=== PATIENT | female | born 1995 | race Caucasian/White ===

== ENCOUNTER 2016-11-28 20:20 | Emergency (ER) | payer MEDICAID ==
[2015-03-29 05:16] VITALS: BMI 35.5
[~2016-11-28 20:20] MED LIST: ACETAMINOPHEN325 MG PO; ACETAMINOPHEN500 M1 PO; IBUPROFEN600 MG PO; PERCOCET 5-3251 TAB PO; PRENATAL COMPLE1 TAB PO; PROZAC20 MG PO
[2016-11-28 21:50] LABS: APPEARANCE HAZY (CLEAR); COLOR DK YELLOW (YELLOW); LEUKOCYTE ESTERASE 2+ (NEGATIVE); NITRITE NEGATIVE (NEGATIVE); PROTEIN 1+ mg/dL (NEGATIVE); SPECIFIC GRAVITY 1.015 (1.005-1.020)
[2016-11-28 21:51] LABS: BILIRUBIN NEGATIVE (NEGATIVE); GLUCOSE NEGATIVE (NEGATIVE); KETONE MODERATE mg/dL (NEGATIVE); UROBILINOGEN NORMAL (NORMAL); WHITE CELLS - URINE >50 /hpf (0-5)
[2016-11-28 22:03] LABS: BACTERIA MANY /hpf (NONE SEEN); EPITHELIAL CELLS 0-5 /hpf (0-5)
== END 2016-11-28 23:28 | disposition home or self-care (01) ==
LOC: D.ER 20:20
PROVIDERS: Emergency Medicine
DX: N39.0 Urinary tract infection, site not specified (principal); R11.10 Vomiting, unspecified; F32.9 Major depressive disorder, single episode, unspecified; F17.200 Nicotine dependence, unspecified, uncomplicated

== ENCOUNTER 2017-01-11 18:03 | Emergency (ER) | payer SELFPAY ==
[2015-03-29 05:16] VITALS: BMI 35.5
== END 2017-01-11 22:40 | disposition home or self-care (01) ==
LOC: D.ER 18:03
DX: F32.9 Major depressive disorder, single episode, unspecified (principal); F41.9 Anxiety disorder, unspecified; F17.200 Nicotine dependence, unspecified, uncomplicated; F12.10 Cannabis abuse, uncomplicated

== ENCOUNTER 2017-01-19 10:07 | Emergency (ER) | payer SELFPAY ==
[2015-03-29 05:16] VITALS: BMI 35.5
== END 2017-01-19 11:25 | disposition home or self-care (01) ==
LOC: D.ER 10:07
DX: F41.9 Anxiety disorder, unspecified (principal); F41.0 Panic disorder [episodic paroxysmal anxiety]; F17.200 Nicotine dependence, unspecified, uncomplicated; F32.9 Major depressive disorder, single episode, unspecified

== ENCOUNTER 2017-04-26 15:21 | Emergency (ER) | payer SELFPAY ==
[2015-03-29 05:16] VITALS: BMI 35.5
== END 2017-04-26 16:07 | disposition home or self-care (01) ==
LOC: D.ER 15:21
DX: Z76.0 Encounter for issue of repeat prescription (principal); F17.200 Nicotine dependence, unspecified, uncomplicated; F32.9 Major depressive disorder, single episode, unspecified

== ENCOUNTER 2017-05-06 10:13 | Emergency (ER) | payer SELFPAY ==
[2015-03-29 05:16] VITALS: BMI 35.5
== END 2017-05-06 12:20 | disposition home or self-care (01) ==
LOC: D.ER 10:13
DX: Z03.89 Encounter for observation for other suspected diseases and conditions ruled out (principal); F32.9 Major depressive disorder, single episode, unspecified; F41.0 Panic disorder [episodic paroxysmal anxiety]; R51 Headache; M79.605 Pain in left leg; M79.604 Pain in right leg; R10.30 Lower abdominal pain, unspecified; R53.83 Other fatigue; M54.5 Low back pain; F17.200 Nicotine dependence, unspecified, uncomplicated

== ENCOUNTER 2017-09-28 19:37 | Emergency (ER) | payer MEDICAID ==
[2015-03-29 05:16] VITALS: BMI 35.5
== END 2017-09-28 21:12 | disposition home or self-care (01) ==
LOC: D.ER 19:37
DX: S93.402A Sprain of unspecified ligament of left ankle, initial encounter (principal); W19.XXXA Unspecified fall, initial encounter; Y93.89 Activity, other specified; Y92.019 Unspecified place in single-family (private) house as the place of occurrence of the external cause; F17.200 Nicotine dependence, unspecified, uncomplicated

== ENCOUNTER 2018-12-14 10:40 | Emergency (ER) | payer MEDICAID ==
[~2018-12-14] VITALS: Ht 157.5 cm; Wt 62.4 kg
[2018-12-14 10:45] VITALS: Ht 157.5 cm; Wt 62.4 kg
[2018-12-14 11:10] LABS: BASOPHILS 0.1 % (0-2); EOSINOPHILS 0.4 % (0-7); HEMATOCRIT 31.6 % (36.0-48.0); HEMOGLOBIN 10.9 g/dL (12-16); IMMATURE GRANULOCYTES 0.7 % (0-5); LYMPHOCYTES 20.6 % (15-50); MCH 31.5 pg (26.0-34.0); MCHC 34.5 g/dL (31.0-37.0); MCV 91.3 fL (80.0-100.0); MEAN PLATELET VOLUME 10.4 fL (7.4-10.4); MONOCYTES 7.4 % (2-11); NEUTROPHILS 70.8 % (40-80); RBC 3.46 10x6/uL (4.00-5.40); RDW 13.1 % (11.5-14.5); WBC 9.5 10x3/uL (4.8-10.8)
[2018-12-14 11:15] LABS: PLATELET COUNT 221 10x3/uL (130-400)
[2018-12-14 12:02] LABS: ALBUMIN 2.8 g/dL (3.4-5.0); ALKALINE PHOSPHATASE 60 U/L (46-116); ALT (SGPT) 14 U/L (10-68); BILIRUBIN - TOTAL 0.31 mg/dL (0.2-1.3); CALC OSMOLALITY 272 mosm/kg (275-300); CALCIUM 7.9 mg/dL (8.5-10.1); CARBON DIOXIDE 22.8 mmol/L (21.0-32.0); CHLORIDE - SERUM 105 mmol/L (98-107); CREATININE - SERUM 0.5 mg/dL (0.6-1.3); GLUCOSE 87 mg/dL (74-106); POTASSIUM - SERUM 3.5 mmol/L (3.5-5.1); SODIUM 138 mmol/L (136-145); UREA NITROGEN 7 mg/dL (7-18); eGFR NON AFRICAN AMERICAN > 90 mL/min (90-120)
[2018-12-14 12:57] LABS: HCG URINE POSITIVE (NEGATIVE)
[2018-12-14 13:07] LABS: APPEARANCE CLEAR (CLEAR); BILIRUBIN NEGATIVE (NEGATIVE); COLOR STRAW (YELLOW); GLUCOSE NEGATIVE (NEGATIVE); KETONE NEGATIVE (NEGATIVE); NITRITE NEGATIVE (NEGATIVE); PROTEIN NEGATIVE (NEGATIVE); SPECIFIC GRAVITY 1.005 (1.005-1.020); UROBILINOGEN NORMAL (NORMAL)
[2018-12-14 13:08] LABS: WHITE CELLS - URINE 0-5 /hpf (0-5)
[2018-12-14 13:09] LABS: BACTERIA FEW /hpf (NONE SEEN); EPITHELIAL CELLS 0-5 /hpf (0-5); RED CELLS - URINE 0-5 /hpf (0-5)
[2018-12-14] MEDS ORDERED: ZOFRAN4 MG PO (13:20)
[2018-12-14 13:45] VITALS: BP 112/60
== END 2018-12-14 13:45 | disposition home or self-care (01) ==
LOC: D.ER 10:40
PROVIDERS: Family Medicine
DX: R11.2 Nausea with vomiting, unspecified (principal); R19.7 Diarrhea, unspecified; Z32.01 Encounter for pregnancy test, result positive

== ENCOUNTER 2019-01-18 08:59 | Emergency (ER) | payer MEDICAID ==
[~2019-01-18] VITALS: Ht 157.5 cm; Wt 65.7 kg
[~2019-01-18 08:59] MED LIST changes: +ZOFRAN4 MG PO
[2019-01-18 09:00] VITALS: Ht 157.5 cm; Wt 65.7 kg
[2019-01-18 09:24] LABS: APPEARANCE CLEAR (CLEAR); COLOR YELLOW (YELLOW); SPECIFIC GRAVITY 1.005 (1.005-1.020)
[2019-01-18 09:25] LABS: BILIRUBIN NEGATIVE (NEGATIVE); GLUCOSE NEGATIVE (NEGATIVE); KETONE NEGATIVE (NEGATIVE); NITRITE NEGATIVE (NEGATIVE); PROTEIN NEGATIVE (NEGATIVE)
[2019-01-18 09:31] LABS: BASOPHILS 0.2 % (0-2); EOSINOPHILS 0.7 % (0-7); HEMATOCRIT 29.7 % (36.0-48.0); IMMATURE GRANULOCYTES 0.5 % (0-5); LYMPHOCYTES 20.3 % (15-50); MCH 30.5 pg (26.0-34.0); MCHC 33.7 g/dL (31.0-37.0); MCV 90.5 fL (80.0-100.0); MEAN PLATELET VOLUME 10.2 fL (7.4-10.4); MONOCYTES 6.4 % (2-11); NEUTROPHILS 71.9 % (40-80); PLATELET COUNT 217 10x3/uL (130-400); RBC 3.28 10x6/uL (4.00-5.40); WBC 10.2 10x3/uL (4.8-10.8)
[2019-01-18 13:16] VITALS: BP 116/77
== END 2019-01-18 13:17 | disposition home or self-care (01) ==
LOC: D.ER 08:59
PROVIDERS: Emergency Medicine
DX: O26.852 Spotting complicating pregnancy, second trimester (principal); Z3A.23 23 weeks gestation of pregnancy

== ENCOUNTER → 2019-03-24 09:01 | Outpatient (CLI) | payer SELFPAY ==
[2019-01-18 09:00] VITALS: BMI 26.5
== END | disposition home or self-care (01) ==
LOC: D.US 09:00
PROVIDERS: ATTEND Obstetrics & Gynecology
DX: M79.662 Pain in left lower leg (principal)

== ENCOUNTER → 2019-04-25 08:41 | Outpatient (CLI) | payer SELFPAY ==
[2019-01-18 09:00] VITALS: BMI 26.5
[~2019-04-25 08:41] MED LIST changes: +BUSPAR10 MG PO; +FERROUS SULFAT325 MG PO
--- NOTE | 2019-04-25 10:24 | NUR ---
According to the Suicide Assessment the patient rates low on the suicide screen she denies thoughts of SI, but does say she is tired and stressed.
== END | disposition home or self-care (01) ==
LOC: D.LDO 08:41
PROVIDERS: ATTEND Obstetrics & Gynecology
DX: O36.5990 Maternal care for other known or suspected poor fetal growth, unspecified trimester, not applicable or unspecified (principal); Z3A.00 Weeks of gestation of pregnancy not specified

== ENCOUNTER 2019-04-26 13:52 | Outpatient (CLI) | payer SELFPAY ==
[2019-01-18 09:00] VITALS: BMI 26.5
[~2019-04-26 13:52] MED LIST changes: -BUSPAR10 MG PO; -FERROUS SULFAT325 MG PO
--- NOTE | 2019-04-26 14:11 | NUR ---
DR. PUGA NOTIFIED AND REVIEWED PTS BEHAVIOR AND ASSESSMENT RESULTS. PT IS A LOW RISK PER DR. PUGA. DR. PUGA STATED TO GIVE RESOURCES TO PT AT TIME OF DISCHARGE. NO FURTHER ORDERS AT THIS TIME. RESOURCES REVIEWED WITH PT AND SHE VERBALIZED UNDERSTANDING.
[2019-04-26 15:05] LABS: HEMATOCRIT 24.1 % (36.0-48.0); MCH 27.1 pg (26.0-34.0); MCHC 33.2 g/dL (31.0-37.0); MCV 81.7 fL (80.0-100.0); MEAN PLATELET VOLUME 10.5 fL (7.4-10.4); RBC 2.95 10x6/uL (4.00-5.40); RDW 13.9 % (11.5-14.5); WBC 10.7 10x3/uL (4.8-10.8)
[2019-04-26] MEDS ORDERED: FERROUS SULFAT325 MG PO (15:30)
[2019-04-26] MEDS ORDERED: BUSPAR10 MG PO (15:32)
[2019-04-27 00:01] LABS: HEMATOCRIT 28.4 % (36.0-48.0); HEMOGLOBIN 9.5 g/dL (12-16); MCH 28.1 pg (26.0-34.0); MCHC 33.5 g/dL (31.0-37.0); MEAN PLATELET VOLUME 9.5 fL (7.4-10.4); NEUTROPHILS 80.7 % (40-80); PLATELET COUNT 202 10x3/uL (130-400); RBC 3.38 10x6/uL (4.00-5.40); RDW 13.7 % (11.5-14.5); WBC 11.6 10x3/uL (4.8-10.8)
== END 2019-04-27 00:09 | disposition home or self-care (01) ==
LOC: D.LDO 13:52 → D.LD 23:03 → D.LDO 04-27 00:09
PROVIDERS: ATTEND Obstetrics & Gynecology
DX: O26.893 Other specified pregnancy related conditions, third trimester (principal); Z3A.37 37 weeks gestation of pregnancy

== ENCOUNTER 2019-04-27 19:57 | Inpatient (IN) | payer MEDICAID ==
[~2019-04-27] VITALS: Ht 157.5 cm; Wt 73.5 kg
[~2019-04-27 19:57] MED LIST changes: +BUSPAR10 MG PO; +FERROUS SULFAT325 MG PO
[2019-04-27 21:00] LABS: BASOPHILS 0.1 % (0-2); EOSINOPHILS 0.1 % (0-7); HEMATOCRIT 25.9 % (36.0-48.0); HEMOGLOBIN 8.7 g/dL (12-16); IMMATURE GRANULOCYTES 0.8 % (0-5); LYMPHOCYTES 6.6 % (15-50); MCH 27.6 pg (26.0-34.0); MCHC 33.6 g/dL (31.0-37.0); MCV 82.2 fL (80.0-100.0); MEAN PLATELET VOLUME 10.3 fL (7.4-10.4); MONOCYTES 5.4 % (2-11); PLATELET COUNT 216 10x3/uL (130-400); RBC 3.15 10x6/uL (4.00-5.40); RDW 14.4 % (11.5-14.5); WBC 14.8 10x3/uL (4.8-10.8)
[2019-04-27 21:10] LABS: ALBUMIN 2.3 g/dL (3.4-5.0); ALKALINE PHOSPHATASE 178 U/L (46-116); ALT (SGPT) 26 U/L (10-68); BILIRUBIN - TOTAL 0.62 mg/dL (0.2-1.3); CALC OSMOLALITY 267 mosm/kg (275-300); CALCIUM 7.8 mg/dL (8.5-10.1); CARBON DIOXIDE 21.7 mmol/L (21.0-32.0); CHLORIDE - SERUM 102 mmol/L (98-107); CREATININE - SERUM 0.7 mg/dL (0.6-1.3); GLUCOSE 106 mg/dL (74-106); PROTEIN - SERUM 6.4 g/dL (6.4-8.2); SODIUM 135 mmol/L (136-145); UREA NITROGEN 7 mg/dL (7-18); eGFR NON AFRICAN AMERICAN > 90 mL/min (90-120)
[2019-04-27 21:11] LABS: POTASSIUM - SERUM 2.8 mmol/L (3.5-5.1)
[2019-04-27 21:15] LABS: COLOR DK YELLOW (YELLOW)
[2019-04-27 21:16] LABS: AMORPHOUS SEDIMENT <1+ /lpf (NONE SEEN); APPEARANCE HAZY (CLEAR); BACTERIA FEW /hpf (NONE SEEN); BILIRUBIN NEGATIVE (NEGATIVE); EPITHELIAL CELLS 0-5 /hpf (0-5); GLUCOSE NEGATIVE (NEGATIVE); KETONE LARGE mg/dL (NEGATIVE); NITRITE NEGATIVE (NEGATIVE); PROTEIN TRACE mg/dL (NEGATIVE); RED CELLS - URINE 0-5 /hpf (0-5); SPECIFIC GRAVITY 1.015 (1.005-1.020); UROBILINOGEN NORMAL (NORMAL); WHITE CELLS - URINE 0-5 /hpf (0-5)
[2019-04-27 21:17] LABS: UDS - AMPHET NEGATIVE QUAL (NEGATIVE); UDS - BARB NEGATIVE QUAL (NEGATIVE); UDS - BENZO NEGATIVE QUAL (NEGATIVE); UDS - COCAINE NEGATIVE QUAL (NEGATIVE); UDS - OPIATE NEGATIVE QUAL (NEGATIVE); UDS - PCP NEGATIVE QUAL (NEGATIVE); UDS - THC NEGATIVE QUAL (NEGATIVE)
[2019-04-27 21:55] LABS: LYMPHOCYTES 2 % (15-50); MONOCYTES 2 % (2-11); NEUTROPHILS 91 % (40-80); ROULEAUX 4+
[2019-04-27 21:56] LABS: HYPOCHROMASIA 1+; PLATELET ESTIMATE NORMAL
[2019-04-27 23:35] LABS: APTT 36.9 SECONDS (22.8-39.4); INR 1.17 (0.85-1.17); PROTIME 14.3 SECONDS (11.6-15.0)
[2019-04-27 23:37] LABS: D-DIMER-QUANTITATIVE 2.34 ug/mLFEU (0.20-0.54)
[2019-04-27 23:48] LABS: CKMB 1.5 U/L (0.0-3.6); CREATINE KINASE 38 UL (21-215)
[2019-04-27 23:50] LABS: TROPONIN-I < 0.017 ng/mL (0.000-0.060)
[2019-04-28 07:22] VITALS: BP 124/60; Ht 157.5 cm; Wt 73.5 kg
[2019-04-28 07:23] LABS: BASOPHILS 0.1 % (0-2); EOSINOPHILS 0 % (0-7); HEMATOCRIT 28.3 % (36.0-48.0); HEMOGLOBIN 9.4 g/dL (12-16); IMMATURE GRANULOCYTES 0.8 % (0-5); LYMPHOCYTES 6.6 % (15-50); MCH 27.3 pg (26.0-34.0); MCHC 33.2 g/dL (31.0-37.0); MCV 82.3 fL (80.0-100.0); MEAN PLATELET VOLUME 10.7 fL (7.4-10.4); MONOCYTES 5.6 % (2-11); NEUTROPHILS 86.9 % (40-80); PLATELET COUNT 179 10x3/uL (130-400); RBC 3.44 10x6/uL (4.00-5.40); RDW 14.6 % (11.5-14.5); WBC 14.4 10x3/uL (4.8-10.8)
[2019-04-28 07:36] LABS: ALBUMIN 2.3 g/dL (3.4-5.0); ALKALINE PHOSPHATASE 179 U/L (46-116); ALT (SGPT) 32 U/L (10-68); BILIRUBIN - TOTAL 0.73 mg/dL (0.2-1.3); CALCIUM 7.6 mg/dL (8.5-10.1); CARBON DIOXIDE 17.3 mmol/L (21.0-32.0); CHLORIDE - SERUM 103 mmol/L (98-107); CREATININE - SERUM 0.6 mg/dL (0.6-1.3); GLUCOSE 78 mg/dL (74-106); PROTEIN - SERUM 6.3 g/dL (6.4-8.2); SODIUM 133 mmol/L (136-145); eGFR NON AFRICAN AMERICAN > 90 mL/min (90-120)
[2019-04-28 07:37] LABS: CALC OSMOLALITY 261 mosm/kg (275-300); POTASSIUM - SERUM 3.4 mmol/L (3.5-5.1); UREA NITROGEN 4 mg/dL (7-18)
--- NOTE | 2019-04-28 17:15 | NUR ---
PT RINGS CALL LIGHT. THIS RN TO BEDSIDE. PT REQUESTING ADDITIONAL BLANKETS. TEMP TAKEN 102.3 NOTED. PT EDUCATION GIVEN AND NO ADDITIONAL BLANKETS PROVIDED. WHILE AT BEDSIDE, PT ASSISTED W/GETTING OUT OF BED, UP TO BR. VOIDS 150ML URINE. RETURNS TO BED. RECONNECTED TO MONITORS. PULSE OX OBTAINED, PT'S PULSE OX WHEN OFF O2 IS 97%. NC O2 OFF AT THIS TIME. PT MEDICATED W/500MG TYLENOL PO. DENIES FURTHER NEEDS AT THIS TIME.
[2019-04-28 19:30] VITALS: BP 100/56
--- NOTE | 2019-04-28 19:30 | NUR ---
ASSESSMENT PER FLOW, PT REPORTS JUST GETTING OUT OF SHOWER, SALINE LOCK CONVERTED TO IV, NS RESTARTED PER MD ORDERS, SEE EMAR, PT REPORTS FLATUS, BM TODAY AND VOIDING WITH NO DIFFICULTY, PT REPORTS BACK PAIN /10, SCD'S REAPPLIED AND WORKING PROPERLY, DENIES NEEDS, BED IN LOW POSITION, SIDE RAILS X 2, CALL LIGHT IN REACH
--- NOTE | 2019-04-28 19:50 | NUR ---
[id number] - 1 MILD CTX NOTED, FHR 175 WITH ACCELS, 1 VARIABLE NOTED
--- NOTE | 2019-04-28 21:00 | NUR ---
PT ON MONITORS AT THIS TIME, 3 MILD CTX NOTED, FHR 170'2 WITH ACCELS
--- NOTE | 2019-04-28 21:20 | NUR ---
PT OFF MONITORS, TO BR
--- NOTE | 2019-04-28 21:25 | NUR ---
PT BACK TO BED, MONITORS RECONNECTED, PT DENIES FURTHER NEEDS, FOB AT BEDSIDE
--- NOTE | 2019-04-28 21:38 | NUR ---
RECEIVED REPORT FROM KHLOE CRUZ RN THAT INTERMITTENT MONITORING WITH FEVER
--- NOTE | 2019-04-28 22:21 | NUR ---
PT RESTING, FOB AT BEDSIDE, DENIES NEEDS AT THIS TIME
--- NOTE | 2019-04-28 22:45 | NUR ---
FEVER 102.8 TYLENOL GIVEN PER MAR
--- NOTE | 2019-04-28 22:48 | NUR ---
REQUESTED ORANGE JUICE. ORANGE JUICE AND CUP GIVEN. GETTING UP TO THE BATHROOM WILL PUT BACK ON MONITORS PER ORDER WHEN FINISHED.
[2019-04-28 23:00] VITALS: BP 132/65
--- NOTE | 2019-04-28 23:00 | NUR ---
PT PLACED BACK ON MONITORS AT THIS TIME
--- NOTE | 2019-04-28 23:00 | NUR ---
[id number] - 1 MILD CTX NOTED, FHR 175
--- NOTE | 2019-04-28 23:18 | NUR ---
NEW BAG OF LR HUNG PER MD ORDERS, SEE EMAR
--- NOTE | 2019-04-29 00:15 | NUR ---
KHLOE CRUZ, RN REPORTS THAT PT'S TEMP IS 102.8, RESP 24-26, O2 SAT 94%, PT PLACED ON 2L OF O2 VIA NC, LUNGS CLEAR WITH RIGHT LOWER DIMINISHED, WILL NOTIFY DR WALTON
--- NOTE | 2019-04-29 00:16 | NUR ---
EFM/TOCO PLACED
--- NOTE | 2019-04-29 00:27 | NUR ---
DR WALTON NOTIFIED, REPORT OF LUNG SOUNDS, TEMP, RESP, O2 SAT AND PLACED ON 2L O2 VIA NC, ORDERS TO DRAW BLOOD CULTURES, PLACED COLD PACKS, ADM TYLENOL 500 MG PO NOW, DC TYLENOL 500 MG Q6HPRN, AND CHANGE TO TYLENOL 1000MG PO Q6HPRN FOR FEVER
--- NOTE | 2019-04-29 00:30 | NUR ---
2 MILD CTX NOTED, FHR 165 WITH ACCELS
--- NOTE | 2019-04-29 00:32 | NUR ---
LAB TO ROOM FOR BLOOD DRAW
--- NOTE | 2019-04-29 00:39 | NUR ---
ADM TYLENOL 500 MG PER MD ORDERS, COLD PACKS PLACED, SCD'S CONTINUE ON AND WORKING PROPERLY, FOB AT BEDSIDE
--- NOTE | 2019-04-29 01:30 | NUR ---
PT PLAN MANAGER LIGHT, PT UP TO BR, GAIT STEADY, EMPTIED 500 MLS OF LIGHT YELLOW URINE, PT REPORTS VOIDING EARLIER, PT VOIDED 500 MLS OF LIGHT YELLOW URINE BY SELF WITH NO DIFFICULTY, PT BACK TO BED, SCD'S RECONNECTED AND WORKING PROPERLY, EFM/TOCO RECONNECTED, PT DENIES FURTHER NEEDS
--- NOTE | 2019-04-29 02:00 | NUR ---
PT MACHINE INKER LIGHT, PT UP TO BR, GAIT STEADY, VOIDED 200 MLS LIGHT YELLOW URINE, REPORTS HAVING TO "PEE" MORE FROM DRINKING WATER, PT BACK TO BED, TEMP OBTAINED, 98.8 AT THIS TIME, PT DISCONNECTED FROM EFM/TOCO, PT REQUESTED AND SERVED SANDWICH TRAY, SCD'S RECONNECTED AND WORKING PROPERLY, DENIES FURTHER NEEDS, FOB ASLEEP ON COUCH
--- NOTE | 2019-04-29 02:00 | NUR ---
PT REMOVED FROM MONITORS AT THIS TIME
--- NOTE | 2019-04-29 02:51 | NUR ---
AZ ANDRADE IVPB PER MD ORDERS, SEE EMAR
[2019-04-29 03:38] VITALS: BP 118/68
--- NOTE | 2019-04-29 03:38 | NUR ---
PT DIE WELDER LIGHT, PT UP TO BR WITH ASSISTANCE, GAIT STEADY, VOIDED 500 MLS OF YELLOW URINE BY SELF WITH NO DIFFICULTY, PT BACK TO BED, VS OBTAINED, EFM/TOCO APPLIED, SCD'S RECONNECTED, PT POSITIONED TO LEFT SIDE WITH PILLOWS BEHIND AROUND HER FOR COMFORT AND SUPPORT, PT DENIES FURTHER NEEDS
--- NOTE | 2019-04-29 04:53 | NUR ---
PT CONFIGURATOR LIGHT, PT STATES "Y'ALL SAID THESE COULD COME OFF IN 20 MINUTES", EFM/TOCO REMOVED, PT UP TO BR WITH ASSISTANCE, VOIDED 200 MLS OF LIGHT YELLOW URINE BY SELF WITH NO DIFFICULTY, PT BACK TO BED, SCD'S RECONNECTED AND WORKING PROPERLY, FROM 429 TO 452 - 3 MILD CTX, FHR 135 WITH ACCELS NOTED, PT DENIES FURTHER NEEDS, BED IN LOW POSITION, SIDE RAILS X 2, CALL LIGHT IN REACH, FOB ASLEEP ON COUCH
--- NOTE | 2019-04-29 06:02 | NUR ---
PT MARINE PHOTOGRAPHER LIGHT, PT UP TO BR WITH ASSISTANCE, VOIDED 250 MLS OF LIGHT YELLOW URINE BY SELF WITH NO DIFFICULTY, PT BACK TO BED, PT REPORTS "FEELING COLD", OBTAINED TEMP, TEMP 99.5, INFORMED PT THAT I WAS GOING TO PUT THE EFM/TOCO ON HER AND PT REFUSED IT AT THIS TIME, STATES "THE DOCTOR TOLD ME ANYTHING UNDER 100 IS NOT A TEMP", TRIED TO EXPLAIN TO PT, BUT PT STILL REFUSES AT THIS TIME, DENIES FURTHER NEEDS, SCD'S RECONNECTED AND WORKING PROPERLY, BED IN LOW POSITION, SIDE RAILS X 2, CALL LIGHT IN REACH, FOB ASLEEP ON COUCH
[2019-04-29 07:42] VITALS: BP 122/70
[2019-04-29 09:01] LABS: ALBUMIN 2.1 g/dL (3.4-5.0); ALKALINE PHOSPHATASE 177 U/L (46-116); ALT (SGPT) 28 U/L (10-68); BILIRUBIN - TOTAL 0.64 mg/dL (0.2-1.3); CALC OSMOLALITY 266 mosm/kg (275-300); CALCIUM 7.8 mg/dL (8.5-10.1); CARBON DIOXIDE 20.3 mmol/L (21.0-32.0); CHLORIDE - SERUM 103 mmol/L (98-107); CREATININE - SERUM 0.6 mg/dL (0.6-1.3); GLUCOSE 95 mg/dL (74-106); POTASSIUM - SERUM 3.5 mmol/L (3.5-5.1); PROTEIN - SERUM 6.2 g/dL (6.4-8.2); SODIUM 135 mmol/L (136-145); UREA NITROGEN 3 mg/dL (7-18); eGFR NON AFRICAN AMERICAN > 90 mL/min (90-120)
[2019-04-29 09:11] LABS: BASOPHILS 0.2 % (0-2); EOSINOPHILS 0 % (0-7); HEMOGLOBIN 9.1 g/dL (12-16); IMMATURE GRANULOCYTES 1.3 % (0-5); LYMPHOCYTES 7.7 % (15-50); MCH 27.8 pg (26.0-34.0); MCHC 33.7 g/dL (31.0-37.0); MCV 82.6 fL (80.0-100.0); MEAN PLATELET VOLUME 10.1 fL (7.4-10.4); MONOCYTES 3.9 % (2-11); NEUTROPHILS 86.9 % (40-80); PLATELET COUNT 171 10x3/uL (130-400); RBC 3.27 10x6/uL (4.00-5.40); RDW 14.7 % (11.5-14.5); WBC 11.5 10x3/uL (4.8-10.8)
[2019-04-29 11:17] VITALS: BP 116/68
[2019-04-29 15:35] VITALS: BP 119/62
[2019-04-29 19:13] VITALS: BP 118/91
[2019-04-29 23:25] VITALS: BP 101/55
[2019-04-30 06:50] LABS: BASOPHILS 0.1 % (0-2); EOSINOPHILS 0.2 % (0-7); HEMATOCRIT 25.2 % (36.0-48.0); HEMOGLOBIN 8.3 g/dL (12-16); IMMATURE GRANULOCYTES 2.3 % (0-5); LYMPHOCYTES 10.7 % (15-50); MCH 27.2 pg (26.0-34.0); MCHC 32.9 g/dL (31.0-37.0); MCV 82.6 fL (80.0-100.0); MEAN PLATELET VOLUME 9.9 fL (7.4-10.4); MONOCYTES 4.8 % (2-11); NEUTROPHILS 81.9 % (40-80); PLATELET COUNT 165 10x3/uL (130-400); RBC 3.05 10x6/uL (4.00-5.40); RDW 14.7 % (11.5-14.5); WBC 9.1 10x3/uL (4.8-10.8)
[2019-04-30 06:59] LABS: CALC OSMOLALITY 269 mosm/kg (275-300); CALCIUM 7.5 mg/dL (8.5-10.1); CARBON DIOXIDE 20.2 mmol/L (21.0-32.0); CHLORIDE - SERUM 105 mmol/L (98-107); CREATININE - SERUM 0.5 mg/dL (0.6-1.3); GLUCOSE 85 mg/dL (74-106); MAGNESIUM - SERUM 1.6 mg/dL (1.8-2.4); PHOSPHOROUS 2.9 mg/dL (2.5-4.9); SODIUM 137 mmol/L (136-145); UREA NITROGEN 4 mg/dL (7-18); eGFR NON AFRICAN AMERICAN > 90 mL/min (90-120)
--- NOTE | 2019-04-30 10:41 | NUR ---
up to bathroom.
[2019-04-30 19:40] VITALS: BP 124/82
--- NOTE | 2019-04-30 19:40 | NUR ---
REC'D PT AA&O X 4. PAIN ASSESSED. PT REPORTS CONSTANT BACK PAIN. RATES PAIN 3/10. NO REQUEST FOR PAIN INTERVENTIONS AT THIS TIME. SEE FLOWSHEET FOR SHIFT ASSESSMENT. BREATH SOUNDS CLEAR W/DIMINISHED BREATH SOUNDS NOTED TO LOWER RT LOBE. BOWEL SOUNDS PRESENT. NO EDEMA NOTED. SCD WRAPS IN PLACE BILATERALLY. CONNECTED TO PUMP AND PUMP IS ON AND FUNCTIONING. IV SITE TO LEFT WRIST. WNL. PATENT W/NS INFUSING AT 50ML/HR. PM SHIFT POC DISCUSSED. PT VEBALZIES UNDERSTANDING AND AGREEABLE. LOVENOX TEACHING PROVIDED AND QUESTIONS ANSWERED.ADDITIONAL COMMENTS IN CENTRICITY. BED LOW, SIDE RAILS UPX 2. CALL LIGHT AND PHONE AT PT'S SIDE.
--- NOTE | 2019-04-30 20:00 | NUR ---
RT TO ROOM AT THIS TIME FOR ORDERED TREATMENT.
--- NOTE | 2019-04-30 20:00 | NUR ---
O2 DECREASED TO 5L AT THIS TIME. O2 SAT REMAIN AT 96%-97%
--- NOTE | 2019-04-30 20:30 | NUR ---
ROUNDS MADE. PT SITTING UP IN BED TALKING W/SIG OTHER. PAIN AND NEEDS ASSESSED. NO PAIN INTERVENTIONS REQUESTED AT THIS TIME. PT REQUESTS HER AMBIEN NOW.PT INFORMED THAT SHE HAS OTHER MEDS SCHEDULED AT 2100 AND IT WILL BE BROUGHT AT THAT TIME. PT IS AGREEABLE. NO FURTHER NEEDS AT THIS TIME.
--- NOTE | 2019-04-30 20:50 | NUR ---
THIS RN TO BEDSIDE TO ADMINISTER REQUESTED AND SCHEDULED MEDS. PT NOW REQUESTING TO GET UP TO AMBULATE IN THE HALLS. SCHEDULED PEPCID AND LOVENOX INJECTION ADMINISTERED. SEE EMAR. PT THEN ASSISTED W/BEINGA BLE TO AMBULATE. O2 TANK PROVIDED. O2 TUBING CONNECTED AND SET TO 6L. PT AMBULATES IN SILVERMAN W/SIG OTHER. PT RETURNS PROMPTLY TO ROOM TO VOID AND THEN RETURNS TO HALLS TO AMBULATE. PT HAS STEADY GATE AND DENIES FEELING DIZZY OR WEAK. WHILE PT IS UP TO AMBULATE. BED LINENS CHANGED AND ROOM CLEANED AND STRAIGHTENED. HOUSE KEEPING REMOVED TRASH AND LINEN.
--- NOTE | 2019-04-30 21:36 | NUR ---
PT RETURNS TO ROOM. REPORTS TOLERATED AMBULATING WELL. PT REPORTS SHE AMBULATED TO WS DO[address] AND THEN TO VENDING MACHINES. PT RETURNS TO BED. RECONNECTED TO MONITORS. SEE CENTRITY FOR TRACING. PT NOW REQUEST AMBIEN AND FRESH ICE WATER. ICE WATER SERVED.
--- NOTE | 2019-04-30 22:11 | NUR ---
IV SITE WNL. VANCOMYCIN 1.25GM UP TO INFUSE AT 250ML/HR. AMBIEN 10MG PO GIVEN. PT DENIES FURTHER NEEDS AT THIS TIME.
--- NOTE | 2019-04-30 23:00 | NUR ---
ROUNDS MADE. PT RESTING QUIETLY TO LEFT SIDE W/EYES CLOSED. OPENS EYES SPONTANEOUSLY WITH VERBAL STIMULUS. EFM REPOSTIIONED FOR CONTINUOS TRACING. NO NEEDS VOICED AT THIST SHERIN. NO C/O PAIN.
[2019-05-01 00:11] VITALS: BP 119/65
--- NOTE | 2019-05-01 00:11 | NUR ---
ROUNDS MADE. UPON ENTER ROOM, PT IS AA&O X 4 USING CELL PHONE. NO COMPLAINTS AT THIS TIME. VITAL SIGNS OBTAINED AND CHARTED. PT IS AFEBRILE.
--- NOTE | 2019-05-01 00:59 | NUR ---
OOB AT 0045 TO GO TO BATHROOM. VOIDED 600 MLS CLEAR LIGHT YELLOW URINE IN HAT. SMALL SOFT FORMED BM NOTED. UNSTEADY GAIT NOTED REQUIRING MINIMAL ASSIST. EFM/TOCO AND SCD'S PLACED. DENIES NEEDS AT THIS TIME. RT AT BEDSIDE FOR ORDERED UPDRAFT. BED IN LOW POSITION WITH UPPER SIDE RAILS RAISED X2. CALL LIGHT AND PHONE WITHIN REACH.
--- NOTE | 2019-05-01 00:59 | NUR ---
PT OOB UP TO BR. RETURNS TO BED. RESP THERAPY TO BEDSIDE FOR ORDERED TREATMENT.
--- NOTE | 2019-05-01 01:05 | NUR ---
QUINTIN IN LAB NOTIFIED OF NEED FOR ORDERED LABS AT 0000. PER QUINTIN ALL LABS CAN BE ADDED ON TO BLOOD THAT WAS DRAWN AT 1835 IF PT HAD NOT REC'D MEDS. SPOKE WITH Gurpreet JENSEN RN WHO REPORTS THAT PT HAD NOT REC'D ANY MEDS OTHER THAN ANBX AND AMBIEN, ADD LABS ON INSTEAD OF DRAWING AT THIS TIME.
--- NOTE | 2019-05-01 01:10 | NUR ---
WHILE AT BEDSIDE PT'S PULSE HAS DECREASED TO 93% WHILE ON 2L. O2 FLOW INCREASED TO 5L TO MAINTAIN 95%. PT'S RESP RATE INCREASED AT THIS TIME TO 36 BREATHS PER MINUTE. NO C/O OF DIFFICULTY BREATHING. PT COUGHS UP BLOOD TINGED YELLOWISH SPUTUM.
--- NOTE | 2019-05-01 03:00 | NUR ---
ROUNDS MADE. PT RESTING QUIETLY W/EYES CLOSED. OPENS EYES SPONTANEOUSLY W/ENTRY TO THE ROOM RESP EVEN AND UNLABORED. NO COMPLAINTS OR REQUEST AT THIS TIME.
--- NOTE | 2019-05-01 03:53 | NUR ---
ROUNDS MADE. PT LYING TO RT SIDE. RESP COUNT DONE. RESP 18. SNORING AUDIBLE. PT LEFT UNDISTURBED AT THIS TIME.
--- NOTE | 2019-05-01 05:25 | NUR ---
xray to room at this time. request pt take bra off. this rn to bedside to assist pt w/doing so. pt sitting up in bed. begins having a coughing spell. able to cough og clear sputum. after several minutes, is up to br.
--- NOTE | 2019-05-01 05:26 | NUR ---
vital signs obtained. pt remains afebrile. see flowsheet for complete doc of vital signs.
[2019-05-01 05:30] VITALS: BP 116/73
--- NOTE | 2019-05-01 05:40 | NUR ---
pt up to void and bra off.
--- NOTE | 2019-05-01 05:44 | NUR ---
PT RETURNS TO BED. REMAINS SITTING UP IN BED USING CELL PHONE. DENIES NEEDS AT THIST SHERIN.
--- NOTE | 2019-05-01 05:52 | NUR ---
DR FLORENTINO TO ROOM AT THIS TIME.
--- NOTE | 2019-05-01 06:30 | NUR ---
lab here for am draws.
--- NOTE | 2019-05-01 06:44 | NUR ---
vancomycin 1.25gm up to infuse at 250ml/hr per orders. pt currently sitting up in bed using cell phone. no needs voiced.
--- NOTE | 2019-05-01 06:46 | NUR ---
xray returns to room at this time.
[2019-05-01 07:21] LABS: ALBUMIN 1.8 g/dL (3.4-5.0); ALKALINE PHOSPHATASE 167 U/L (46-116); ALT (SGPT) 22 U/L (10-68); BILIRUBIN - TOTAL 0.51 mg/dL (0.2-1.3); CALC OSMOLALITY 276 mosm/kg (275-300); CALCIUM 7.7 mg/dL (8.5-10.1); CARBON DIOXIDE 21.1 mmol/L (21.0-32.0); CHLORIDE - SERUM 107 mmol/L (98-107); CREATININE - SERUM 0.4 mg/dL (0.6-1.3); GLUCOSE 80 mg/dL (74-106); POTASSIUM - SERUM 3.3 mmol/L (3.5-5.1); PROTEIN - SERUM 5.7 g/dL (6.4-8.2); SODIUM 141 mmol/L (136-145); UREA NITROGEN 3 mg/dL (7-18); eGFR NON AFRICAN AMERICAN > 90 mL/min (90-120)
[2019-05-01 08:48] LABS: EOSINOPHILS 1.4 % (0-7); HEMATOCRIT 26.3 % (36.0-48.0); HEMOGLOBIN 8.6 g/dL (12-16); IMMATURE GRANULOCYTES 9.1 % (0-5); LYMPHOCYTES 22.5 % (15-50); MCHC 32.7 g/dL (31.0-37.0); MCV 82.7 fL (80.0-100.0); MEAN PLATELET VOLUME 10.5 fL (7.4-10.4); MONOCYTES 7.9 % (2-11); NEUTROPHILS 58.1 % (40-80); PLATELET COUNT 182 10x3/uL (130-400); RBC 3.18 10x6/uL (4.00-5.40); RDW 14.5 % (11.5-14.5); WBC 5.9 10x3/uL (4.8-10.8)
--- NOTE | 2019-05-01 19:15 | NUR ---
BEDSIDE REPORT REC'D FROM HENRIK SALEEM. PT REC'D SITTING ON EDGE BED, LOOKING AT CELL PHONE WITH FLAT AFFECT, CAREGIVERS INTRODUCED, PT ASK TO SHOWER AND BECOMES TEARFUL. REPORTS TO RN THAT SHE IS "STRESSED" D/T MONEY ISSUES AND CONCERNS WITH LEAVE FROM WORK AND THAT SHE WON'T BE ABLE TO RETURN TO WORK BEFORE HAVING INFANT, THEN NOT BEING ABLE TO TAKE TIME OFF AFTER HAVING FOR BONDING. PT ALSO REPORTS THAT SHE AND HER SIGNIFICANT OTHER HAVE BEEN ARGUING "ALL DAY OVER ME NEEDING THINGS FOR THE BABY THAT WE DON'T HAVE AND HE WON'T GIVE ME ENOUGH MONEY TO BUY THE THINGS THAT WE NEED." PT SOBBING AT TIMES AND THIS RN UNABLE TO UNDERSTAND WHAT PT WAS SAYING, ENCOURAGED PT TO TAKE SLOW DEEP BREATHS AND TO CALM DOWN. STATES THAT SHE CAN'T CALM DOWN AND IS NEEDING TO SMOKE A CIGARETTE. O2 READING 93-97%, CURRENTLY ON RA AND REFUSES TO REPLACE O2. RN ATTEMPTS TO CALM PT ONCE AGAIN AND ONCE CALM PT ALSO REPORTS THAT SHE IS IN A CUSTODY BERMUDEZ WITH HER EX OVER HER DAUGHTER AND HE IS TRYING TO GAIN FULL CUSTODY OF HER, BEGINS TO SOB UNCONTROLLABLY AT THIS TIME. COOL CLOTH OFFERED AND ENCOURAGED SLOW DEEP BREATHING. REPORTS THAT SHE FEELS ISOLATED TO ROOM D/T HAVING TO BE CONTINUALLY MONITORED. ATTEMPTED TO DISCUSS PLAN OF CARE FOR WEANING O2, AMBULATING WITH PORTABLE O2 TANK ON UNIT, AND THAT EFM/TOCO ARE NO LONGER CONTINUOUS. SHIFT ASSESSMENT COMPLETED WHILE PT CALM AT 1932 PER FLOW SHEET. DIMINISHED BREATH SOUNDS THROUGHOUT ALL FEILDS BILATERALLY WITH INSPIRATORY AND EXPIRATORY WHEEZES NOTED TO RLL. PRODUCTIVE COUGH OF CLEAR TO LIGHT YELLOW THICK SPUTUM NOTED.
[2019-05-01 19:32] VITALS: BP 130/83
--- NOTE | 2019-05-01 19:54 | NUR ---
LINEN CHANGE DONE AND CLEAN GOWNS PLACED IN ROOM FOR PT TO CHANGE INTO FOLLOWING SHOWER. SCD SLEEVES NOTED TO BE SOILED AND CLEAN ONES PROVIDE. CLEAN NON SKID SOCKS ALSO PROVIDED. LINENS PROVIDED FOR SIGNIFICANT OTHER. PT CONTINUES TO AMBULATE ON UNIT. CURRENTLY IN FRONT OF NBN WINDOW. TOLERATING ACTIVITY WELL, DENIES SOB AND DIZZINESS. REINFORCE NOT LEAVING UNIT WHILE AMBULATING, VERBALIZES UNDERSTANDING. CONTINUE TO NOTE STEAY GAIT.
--- NOTE | 2019-05-01 20:22 | NUR ---
PT NOT IN ROOM OR AMBULATING ON UNIT. RN OFF UNIT TO FIND PT. SIGNIFICANT OTHER COMES TO RN AT INFORMATION DESK AND REPORTS THAT HE WAS TRYING TO GET PT TO COME BACK TO ROOM AND SHE BECAME UPSET AND WILL NOT LISTEN TO HIM. RN TO PT AT [place] AND PT ESCORTED BACK TO ROOM. REINFORCED WITH PT IMPORTANCE AND SAFETY OF REMAINING ON UNIT WHEN AMBULATING WITH O2 AND IV ACCESS. STATES THAT SHE JUST HAD TO GET OUT OF THE HOSPITAL D/T FEELING ISOLATED IN ROOM. REPORTS THAT SHE AND SIGNIFICANT BEGAN TO ARGUE OVER FINANCES WHILE AMBULATING. O2 SPOT CHECK WITH O2 SAT 97%. PT ASSISTED TO SHOWER.
--- NOTE | 2019-05-01 20:52 | NUR ---
OUT OF SHOWER. PT STATES THAT SHE IS GOING TO WALK TO HER CAR AND MAKE SURE IT IS LOCKED. PT EDUCATED THAT SHE COULD AMBULATE ON UNIT BUT CAN NOT LEAVE UNIT FOR AMBULATION WITHOUT STAFF MEMBER AND DEPENDING ON CENUS OF UNIT STAFF MAY NOT BE AVAILABLE TO ACCOMPANY HER OFF UNIT. BECOMES TEARFUL WHEN GETTING BACK IN BED AND STATES THAT SHE "JUST NEEDS 2-3 PUFFS OF A CIGARETTE TO HELP ME CALM DOWN." REINFORCED SMOKING POLICY WELL EFFECTS OF SMOKING WHILE PREG AND WITH PNEUMONIA, CONTINUES TO BE TEARFUL AND ASKS RN WHEN SHE CAN AMBULATE. REINFORCED THAT SHE CAN AMBULATE WITH RN WHEN REACTIVE NST IS OBTAINED LONG STAFFING PERMITS, VERBALIZES UNDERSTANDING. REFUSES SCD'S AT THIS TIME. BED IN LOW POSITION WITH UPPER SIDE RAILS RAISED X2. CALL LIGHT AND PHONE WITHIN REACH.
--- NOTE | 2019-05-01 21:20 | NUR ---
RT AT BEDSIDE.
--- NOTE | 2019-05-01 21:23 | NUR ---
REACTIVE NST NOTED. OFF MONITOR. RT AT BEDSIDE ADMINISTERING BREATHING TREATMENT.
--- NOTE | 2019-05-01 21:44 | NUR ---
25 MG IM VISTARIL GIVEN IN RIGHT VENTROGLUTEAL. EDUCATED ON MEDICATION, VERBALIZES UNDERSTANDING. 10 MG PO AMBIEN AND 20 MG PO PEPCID GIVEN PER ORDER. 1.25 GRAM VANC HUNG TO INFUSE OVER 1 HOUR PER ORDER TO RT FA PIV, INFUSING WELL WITH NO S/S OF INFILTRATION NOTED. LOVENOX GIVEN TO RLL ABD QUADRANT. CURRENTLY ON RA, SPOT CHECK FOR O2 SAT 97%. CELL PHONE IN HAND. REFUSES SCD'S. REQUEST THAT V/S BE CHECKED WITH 0100 RT TREATMENT OR WHEN IV ANBX COMPLETES SO SHE CAN SLEEP. RN ENSURED THAT THIS COULD BE DONE UNLESS NEED AROSE PRIOR TO THESE TIMES, VERBALIZES UNDERSTANDING. BED IN LOW POSITION WITH UPPER SIDE RAILS RAISED X2. CALL LIGHT AND PHONE WITHIN REACH. WILL CONTINUE TO MONITOR.
--- NOTE | 2019-05-01 22:45 | NUR ---
VANC INFUSION COMPLETED. NS SET TO INFUSE TO FLUSH IV LINE. PT RESTING WITH EYES CLOSED AT THIS TIME. RESP 19, NO S/S OF DISTRESS NOTED. BED IN LOW POSITION WITH UPPER SIDE RAILS RAISED X2. CALL LIGHT AND PHONE WITHIN REACH. WILL CONTINUE TO MONITOR AND ASSIST PRN.
[2019-05-01 23:35] VITALS: BP 134/78
--- NOTE | 2019-05-01 23:35 | NUR ---
RT FA PIV FLUSH FOLLOWING ANBX COMPLETED AND PIV SL. NO S/S OF INFILTRATION NOTED. UP TO BATHROOM TO VOID, 500 MLS CLEAR LIGHT YELLOW URINE NOTED IN HAT. SMALL SOFT FORMED BM ALSO AT THIS TIME. O2 SAT ON RA FOLLOWING GETTING UP TO BR 91%. PLACED ON 1 L O2 VIA HIGH FLOW NC WITH INCREASE OF O2 SAT TO 96-97%. PT LAYING BACK IN SEMI-FOWLERS POSITION LOOKING ON CELL PHONE AT THIS TIME. O2 MONITOR OFF. DENIES NEEDS. O2 LEFT IN PLACE. REFUSES SCD'S. BED IN LOW POSITION WITH UPPER SIDE RAILS RAISED X2. CALL LIGHT AND PHONE WITHIN REACH. WILL CONTINUE TO MONITOR.
--- NOTE | 2019-05-02 00:58 | NUR ---
RT AT BEDSIDE FOR UPDRAFT.
--- NOTE | 2019-05-02 01:05 | NUR ---
CUP OF ICE PROVIDED PER PT REQUEST. DENIES ADDITIONAL NEEDS AND PAIN. SITTING IN HIGH FOWLERS POSITION WATCHING TV AND PLAYING ON CELL PHONE. BED IN LOW POSITION WITH UPPER SIDE RAILS RAISED X2. CALL LIGHT AND PHONE WITHIN REACH. SCD'S REFUSED, STATES THAT SHE WILL CALL IF LEG CRAMPS BEGIN SINCE THEY ARE FOR PAIN, EDUCATED THAT SCD'S ARE FOR PREVENTION OF BLOOD CLOTS, PT CONTINUES TO INSIST THAT MD ORDERED THEM FOR LEG PAIN.
--- NOTE | 2019-05-02 02:28 | NUR ---
LAYING ON RT SIDE RESTING WITH EYES CLOSED. RESP 17, REGULAR RATE AND RYMTHM NOTED, NO S/S OF DISTRESS NOTED. O2 REMAINS ON AT 1 L/MIN VIA HIGH FLOW NC. BED IN LOW POSITION WITH UPPER SIDE RAILS RAISED X2. CALL LIGHT AND PHONE WITHIN REACH. WILL CONTINUE TO MONITOR.
--- NOTE | 2019-05-02 04:27 | NUR ---
RESTING QUIETLY IN SEMI-FOWLERS POSITIONS. RESPIRATIONS 19, REGULAR RYMTHM, NO S/S OF DISTRESS NOTED. BED IN LOW POSITION WITH UPPER SIDE RAILS RAISED X2. CALL LIGHT AND PHONE WITHIN REACH. WILL CONTINUE TO MONITOR.
--- NOTE | 2019-05-02 05:19 | NUR ---
RESPIRATORY TO PT. ROOM FOR TREATMENT. ICE CHIPS PROVIDED TO PT. PER HER REQUEST.
[2019-05-02 05:44] VITALS: BP 109/55
--- NOTE | 2019-05-02 05:44 | NUR ---
RT FA PIV FLUSHED, FLUSHES WITHOUT DIFFICULTY, NO S/S OF INFILTRATION NOTED. 1.25 GM VANC HUNG TO INFUSE PER ORDER. VSS. O2 REMAINS AT 1L VIA HIGH FLOW NC. LAYING ON LEFT SIDE RESTING WITH EYES CLOSED. DENIES NEEDS. CONTINUES TO REFUSE SCD'S. BED IN LOW POSITION WITH UPPER SIDE RIALS RAISED X2. CALL LIGHT AND PHONE WITHIN REACH. WILL CONTINUE TO MONITOR.
--- NOTE | 2019-05-02 06:01 | NUR ---
LAB AT BEDSIDE.
[2019-05-02 07:33] VITALS: BP 114/66
--- NOTE | 2019-05-02 07:35 | NUR ---
AM ASSESSMENT COMPLETED, PT RESP EVEN BUT SHALLOW, SOB WITH ACTIVITY, COARSE BREATH SOUNDS TO RIGHT UPPER, MIDDLE LOBES AND DIMINISHED TO LOWER LOBE. INCENTIVE SPIROMETRY TO 1250ML WITH ENCOURAGEMENT, +YELLOW AND BLODO TINGED SPUTUM PRODUCED. TOLERATES PO INTAKE, VOICES EXCESSIVE FATIGUE AND MALAISE, HEART RRR, ABD SOFT NONTENDER, GRAVID. VOIDING WITHOUT DIFFICULTY, MENJIVAR FREELY, NEGATIVE SUZIE'S SIGN. REFUSES SCD'S. O2 AT 2L/MIN, DECREASING TO 1L/MIN PER NC-97% AT THIS TIME. PT VOICES THAT SHE HAS HAD +HEMOPTYSIS WITH BRONCHITIS SYMPTOMS OFF AND ON OVER THE PAST YEAR ON INQUIRY. REVIEWED PLAN OF CARE TODAY, QUESTIONS ANSWERED, CALL LIGHT IN EASY REACH, BED IN LOW POSITION, BED BRAKES LOCKED. SIDE RAILS UP X2. CONTINUE TO MONITOR.
--- NOTE | 2019-05-02 08:05 | NUR ---
ROUNDS COMPLETED, CUP OF WATER AND ORANGE JUICE PROVIDED UPON REQUEST. NO OTHER NEEDS VOICED AT THIS TIME. CONTINUE TO MONITOR.
--- NOTE | 2019-05-02 08:58 | NUR ---
ROUNDS COMPLETED. MEDS GIVEN WITH SIPS WATER. SPOT CHECK PULSE OX 96% ON 1L/MIN NC. ENCOURAGED USE OF INCENTIVE SPIROMETRY. STATES UNDERSTANDING. CALL LIGHT IN EASY REACH.
--- NOTE | 2019-05-02 09:47 | NUR ---
ROUNDS COMPLETED, PT LYING LEFT LATERAL POSITION, RESP EVEN AND UNLABORED AT REST, HOB ELEVATED 30 DEGREES. SALINE LOCKED IV. O2 OFF. PULSE OX 96% ON RA WHILE IN BED, INCREASES TO 97-98% WITH SITTING UP IN BED OR ACTIVITY. CONTINUE TO MONITOR. NO NEEDS VOICED, CALL LIGHT IN EASY REACH.
--- NOTE | 2019-05-02 10:38 | NUR ---
ROUNDS COMPLETED, RESP EVEN AND UNLABORED, SLEEPING ON ENTRY TO ROOM, ROUSES TO VERBAL STIMULI, ENCOURAGED AMBULATION IN ROOM OR HALLWAYS, INCENTIVE SPIROMETER USE WITH PT DEMONSTRATING UP TO 1250 ML INSPIRED VOLUME WITH ENCOURAGEMENT, + WET COUGH WITH SPUTUM PRODUCTION. PULSE OX 94-95% ON ROOM AIR-MOUTH BREATHER. UP OOB TO BR TO VOID. NO OTHER NEEDS VOICED. CALL LIGHT IN EASY REACH, WILL MONITOR.
--- NOTE | 2019-05-02 11:45 | NUR ---
ROUNDS COMPLETED, NAD NOTED, PT CONTINUES TO LIE IN BED, RESP EVEN AND UNLABORED, O2 OFF. ENCOURAGED AMBULATION IN ROOM OR IN HALLWAYS. CALL LIGHT IN EASY REACH.
--- NOTE | 2019-05-02 11:50 | NUR ---
DR WALTON PHONES UNIT, STATUS UPDATE ON PT PROVIDED, NO NEW ORDERS RECEIVED.
--- NOTE | 2019-05-02 12:17 | NUR ---
LUNCH TRAY DELIVERED TO PT ROOM PER DIETARY.
[2019-05-02 12:39] VITALS: BP 116/64
--- NOTE | 2019-05-02 12:41 | NUR ---
ROUNDS COMPLETED, IVPB ROCEPHIN HUNG AND INFUSING AT 100ML/HR PER PIV SALINE LOCK TO RIGHT FOREARM WITHOUT DIFFICULTY, VSS, AFEBRILE, LUNCH TRAY PREPPED AND PT ENCOURAGED TO EAT. EFM/TOCO APPLIED TO MATERNAL ABDOMEN AT 1232, ABD SOFT AND NONTENDER. WILL MONITOR.
--- NOTE | 2019-05-02 13:15 | NUR ---
ROUNDS COMPLETED, CONSUMED 100% LUNCH TRAY. NAD NOTED, SIGNIFICANT OTHER AT BS. WILL MONITOR.
--- NOTE | 2019-05-02 13:19 | NUR ---
DR CARROLL HERE TO MAKE ROUNDS, STATES OKAY FOR PT TO HAVE NS NASAL SPRAY FOUR TIMES DAILY FOR NASAL CONGESTION. VERIFIED BY READBACK.
--- NOTE | 2019-05-02 13:53 | NUR ---
RESPIRATORY THERAPY IN TO ADMINISTER NEB TX.
--- NOTE | 2019-05-02 14:10 | NUR ---
PHONED DR WALTON TO UPDATE ON EFM STATUS, WILL LEAVE PT ON EFM/TOCO MONITORS UNTIL HE ARRIVES. CONTINUE TO MONITOR.
[2019-05-02 14:44] VITALS: BP 123/63
--- NOTE | 2019-05-02 15:10 | NUR ---
DR WALTON ROUNDS ON PT, DISCUSSED PLAN OF CARE, QUESTIONS ANSWERED. PT OFF EFM/TOCO MONITORING AT THIS TIME, ENCOURAGED TO AMBULATE IN HALLS.
--- NOTE | 2019-05-02 16:10 | NUR ---
ROUNDS COMPLETED, SODA PROVIDED UPON REQUEST. NO OTHER NEEDS VOICED, CONTINUE TO MONITOR.
--- NOTE | 2019-05-02 17:06 | NUR ---
ROUNDS COMPLETED, PT RESTING WITH EYES CLOSED. RESP EVEN AND UNLABORED, DINNER TRAY AT BS. SIGNIFICANT OTHER TO ROOM. NO NEEDS VOICED AT THIS TIME. CONTINUE TO MONITOR.
--- NOTE | 2019-05-02 18:25 | NUR ---
ROUNDS COMPLETED, PT RESTING IN BED LEFT LATERAL TILT POSITION, SIGNIFICANT OTHER PRESENT IN ROOM, RESP EVEN AND UNLABORED, CALL LIGHT IN EASY REACH, NAD NOTED. CONTINUE TO MONITOR.
--- NOTE | 2019-05-02 18:31 | NUR ---
AMBULATORY IN HALLS WITH SIGNIFICANT OTHER. INSTRUCTED TO STAY ON WOMEN'S UNIT, STATES UNDERSTANDING AND INTENT TO COMPLY.
--- NOTE | 2019-05-02 19:44 | NUR ---
LAYING IN BED ON LEFT SIDE WITH SIGNIFICANT OTHER. SIGNIFICANT OTHER OOB AND ROOM WHEN RN COMES TO BEDSIDE. VSS WITH O2 SAT RANGING FROM 93-96% ON RA, PT NOTED TO HOLD BREATH DURING PERIODS OF MONITORING AND INSTRUCTED TO BREATH, EDUCATED THAT WHEN SHE HOLDS HER BREATH OXYGEN EXCHANGE IS DECREASED, VERBALIZES UNDERSTANDING. SHIFT ASSESSMENT COMPLETED PER FLOWSHEET. BREATH SOUNDS IMPROVED FROM THIS RN'S PREVIOUS ASSESSMENT 05/01/19. BREATH SOUNDS DIMINISHED THROUGHOUT ALL LUNG FEILDS WITH EXPIRATORY WHEEZES AND FINE CRACKLES NOTED RRL. CRACKLES CLEAR WITH COUGH. PRODUCTIVE COUGH NOTED WITH CLEAR THIN SPUTUM. EDUCATED ON IMPORTANCE OF COUGH AND DEEP BREATHING, USE OF FLUTTER AND INCENTIVE SPIROMETER. REPORTS THAT SHE IS PERFORMING WITH RT AND REFUSES TO PERFORM AT THIS TIME. REFUSES SCD'S STATING THAT HER LEGS ARE NOT HURTING, EDUCATED THAT SCD'S ARE USED TO PREVENT FORMATION OF BLOOD CLOTS/DVT'S, STATES "NO THEY AREN'T HE ORDERED THEM FOR PAIN CONTROL BECAUSE MY LEGS WERE KILLING ME WHEN I CAME IN." CONTINUES TO REFUSE. RT FA PIV FLUSHED WITH 10 MLS NS WITHOUT DIFFICULTY, NO S/S OF INFILTRATION NOTED, TOLERATED WELL. PLAN OF CARE DISCUSSED WITH PT, VERBALIZES UNDERSTANDING. UP TO BATHROOM TO VOID, WILL CALL RN TO ROOM WHEN BACK TO BED FOR NST TO BE COMPLETED. BED IN LOW POSITION AND CALL LIGHT PLACED ON PT'S BEDSIDE TABLE FOR EASY ACCESS WHEN BACK TO BED. DENIES NEEDS.
[2019-05-02 19:49] VITALS: BP 130/73
--- NOTE | 2019-05-02 20:03 | NUR ---
EFM/TOCO PLACED FOR SHIFT NST. MONITOR EXPLAINED. REQUESTING BREATHING TREATMENT, SPOKE WITH DARLEEN IN RT WHO REPORTS SHE WILL BE IN ROUTE TO UNIT WHEN SHE COMPLETES CURRENT UPDRAFT THAT SHE IS PERFORMING ON MED II. PT NOTIFIED AND VERBALIZES UNDERSTANDING. REQUESTS SODA AND PROVIDED PER REQUEST. BED IN LOW POSITION WITH UPPER SIDE RAILS RAISED X2. CALL LIGHT AND PHONE WITHIN REACH. WILL CONTINUE TO MONITOR.
--- NOTE | 2019-05-02 20:20 | NUR ---
RT TO BEDSIDE FOR UPDRAFT.
--- NOTE | 2019-05-02 20:23 | NUR ---
REACTIVE NST NOTED, MONITORS OFF. RT REMAINS AT BEDSIDE COMPLETING UPDRAFT. PT DENIES NEEDS. BED IN LOW POSITION WITH UPPER SIDE RAILS RAISED X2. CALL LIGHT AND PHONE WITHIN REACH. SIGNIFICANT OTHER REMAINS OUT OF ROOM.
--- NOTE | 2019-05-02 20:37 | NUR ---
SIGNIFICANT OTHER BACK TO ROOM.
--- NOTE | 2019-05-02 21:39 | NUR ---
PLAYING CARDS WITH SIGNIFICANT OTHER AT THIS TIME. VANC, AMBIEN, PEPCID, AND NASAL SPRAY GIVEN PER ORDER. DENIES PAIN AND NEEDS AT THIS TIME. BED IN LOW POSITION WITH UPPER SIDE RAILS RAISED X2. CALL LIGHT AND PHONE WITHIN REACH. WILL CONTINUE TO MONITOR. CONTINUES TO REFUSE SCD'S.
--- NOTE | 2019-05-02 22:40 | NUR ---
VANC INFUSION COMPLETED. RT FA PIV SL. DENIES NEEDS AT THIS TIME. PLAYING CARDS WITH SIGNIFICANT OTHER. BED IN LOW POSITION WITH UPPER SIDE RAILS RAISED X2. CALL LIGHT AND PHONE WITHIN REACH. WILL CONTINUE TO MONITOR AND ASSIST PRN.
--- NOTE | 2019-05-02 23:27 | NUR ---
UP TO SHOWER, DENIES DIZZINESS, LIGHTHEADEDNESS AND DROWSINESS. LINENS CHANGED. SIGNIFICANT OTHER REMAINS IN ROOM AND VERBALIZES UNDERSTANDING OF CALL LIGHT USE IF NEEDED. WILL CONTINUE TO MONITOR.
[2019-05-03 00:11] VITALS: BP 132/75
--- NOTE | 2019-05-03 00:11 | NUR ---
REPORTS FEELING ANXIOUS D/T UPCOMING CUSTODY HEARING WITH OLDER CHILD. STATES THAT SHE CAN'T FALL ASLEEP EVEN AFTER AMBIEN AND SHOWER. VISTARIL 25 MG IM GIVEN TO RIGHT VENTROGLUTEAL. VSS. REMAINS ON RA. SIGNIFICANT OTHER AT BEDSIDE, SUPPORTIVE AND ATTENTIVE TO PT.
--- NOTE | 2019-05-03 01:03 | NUR ---
RESPIRATORY HERE FOR TREATMENT.
--- NOTE | 2019-05-03 01:16 | NUR ---
MONITOR STATION CALLED UNIT TO STATE PT. OFF MONITOR. INTO ROOM AND PT. AWAKENED AND ELECTRODES CHECKED AND FOUND TO BE INTACT. MONITOR STATION RECALLED AND INFORMED. CONTINUES TO STATE TELEMETRY IS NOT WORKING.
--- NOTE | 2019-05-03 01:23 | NUR ---
BACK TO PT. ROOM TO CHECK TELEMETRY UNIT. PT. AWAKENED AGAIN. MONITOR STATION CALLED AND STEPS TAKEN TO CORRECT OVER THE PHONE. FEATHER DRYING MACHINE OPERATOR STATES TELEMETRY IS NOW PICKING UP. FOB LYING ON SOFA LOOKING AT TABLET DEVICE.
--- NOTE | 2019-05-03 03:07 | NUR ---
LAYING ON LEFT SIDE RESTING WITH EYES CLOSED. RESP REGULAR AND UNLABORED, NO S/S OF DISTRESS NOTED. RESP 17, REGULAR RYMTHM NOTED. NO S/S OF DISTRESS NOTED. SIGNIFICANT OTHER RESTING ON COUCH AT BEDSIDE. BED IN LOW POSITION WITH UPPER SIDE RAILS RAISED X2. CALL LIGHT AND PHONE WITHIN REACH. WILL CONTINUE TO MONITOR.
--- NOTE | 2019-05-03 04:58 | NUR ---
RESTING WITH EYES CLOSED IN SEMIFOWLERS POSITION. RESPIRATIONS REGULAR RATE AND RYMTHM, NO S/S OF DISTRESS NOTED. SIGNIFICANT OTHER RESTING ON COUCH AT BEDSIDE. BED IN LOW POSITION WITH UPPER SIDE RAILS RAISED X2. CALL LIGHT AND PHONE WITHIN REACH. WILL CONT TO MONITOR.
--- NOTE | 2019-05-03 05:25 | NUR ---
TIFFANI IN LABL NOTIFIED OF NEED FOR VANC TROUGH TO BE DRAWN AND NEXT SCHEDULED DOSE OF VANC IS AT 0600. PER TIFFANI SHE WILL NOTIFY PHELBO OF NEED FOR TIMED LABS TO BE DRAWN.
--- NOTE | 2019-05-03 06:04 | NUR ---
LAB AT BEDSIDE.
[2019-05-03 06:07] VITALS: BP 129/74
--- NOTE | 2019-05-03 06:07 | NUR ---
LAYING ON LEFT SIDE RESTING WITH EYES CLOSED. EASILY AROUSES TO VOICE. VSS. DENIES NEEDS. 700 MLS EMPTIED FROM HAT. BED IN LOW POSITION WITH UPPER SIDE RAILS RAISED X2. CALL LIGHT AND PHONE WITHIN REACH. WILL CONTINUE TO MONITOR AND ASSIST PRN.
[2019-05-03 06:29] LABS: POTASSIUM - SERUM 3.5 mmol/L (3.5-5.1)
[2019-05-03 08:31] VITALS: BP 107/60
--- NOTE | 2019-05-03 13:23 | NUR ---
DR WALTON HERE, REVIEWED CBC RESULT HX, NOW TALKING TO PT. INFORMED MD THAT PER DR DEVLIN, PLAN DC HOME TOMORROW ON OMNICEF 300 MG PO, WILL NEED CASE MANAGEMENT CONSULT TO HELP PT IDENTIFY PAYMENT OPTIONS SINCE MEDICAID PENDING.
--- NOTE | 2019-05-03 13:53 | MORECARE ---
CASE MANAGEMENT DISCHARGE SUMMARY PATIENT: STEPHANIE JOLLEY UNIT: [id number] ADM DATE: 04/28/19 AGE: 23 : [birth year] SEX: F ROOM/BED: D.[facility] AUTHOR: SEN COX PHYSICIAN: REFERRING PHYSICIAN: CHANTELLE FLORENTINO MD DATE OF SERVICE: 05/03/19 Discharge Plan Patient Name: STEPHANIE JOLLEY Facility: [facility]:[place] : 1995 Planned Disposition: Anticipated Discharge Date: Discharge Date: Expected LOS: Initial Reviewer: [id number] Initial Review Date: 05/03/2019 Generated: 05/03/19 2:53 pm Patient Name: STEPHANIE JOLLEY Page [phone] at 1353 All edits/amendments must be made on the electronic document DICTATION DATE: 05/03/19 1353 GAS DISPENSER: DINO 05/03/19 1353 RPT#: [id number] DC DATE: STATUS: ADM IN [facility] [address] [place] [address] END OF REPORT
--- NOTE | 2019-05-03 19:12 | NUR ---
BEDSIDE REPORT REC'D FROM Rhett KOTHARI RN. PT REC'D SITTING UP IN BED [place] STYLE DOING UPDRAFT WITH RT. DENIES NEEDS AT THIS TIME. SIGNIFICANT OTHER AT BEDSIDE. BED IN LOW POSITION WITH UPPER SIDE RAILS RAISED X2. CALL LIGHT AND PHONE WITHIN REACH. WILL CONTINUE TO MONITOR.
--- NOTE | 2019-05-03 19:22 | NUR ---
UPDRAFT COMPLETED WITH RT. SHIFT ASSESSMENT COMPLETED AT THIS TIME PER FLOWSHEET. VSS. O2 SAT RANGING FROM 93-97% ON RA WITH PT CONVERSING WITH RN. 400 MLS YELLOW URINE EMPTIED FROM HAT AND REINFORCED WITH PT NOTIFING RN OF VOIDS FOR ACCURATE I&O, VERBALIZES UNDERSTANDING. RLL WITH COARSE CRACKLES THAT BECOME FINE CRACKLES AFTER COUGH. PRODUCTIVE COUGH WITH SCANT HEMOPTYSIS NOTED, MD AWARE. C/O PAIN TO RT FA PIV SITE, REDNESS AND SWELLING NOTED, PIV REMOVED, TIP INTACT. WILL RESITE. PT REQUEST TO SHOWER PRIOR TO HAVING PIV RESITED. QUESTIONS ANSWERED ABOUT WHERE SHE AMBULATE, REINFORCED WITH PT AND SIGNIFICANT OTHER THAT SHE COULD AMBULATE ON UNIT BUT NOT OFF OF UNIT WITHOUT STAFF AND STAFF AVAILABILITY DEPENDED ON UNIT CENSUS AND PT ACCURITY ON UNIT, VERBALIZES UNDERSTANDING. DENIES PAIN. REQUEST TO AMBULATE PRIOR TO NST. STEADY GAIT NOTED. OUT OF ROOM AMBULATING WITH SIGNIFICANT OTHER AT 1943. WILL CONTINUE TO MONITOR.
--- NOTE | 2019-05-03 19:53 | NUR ---
PT TO DESK REQUESTING TO GO TO VENDING MACHINE. THIS RN OFF UNIT TO VENDING AREA WITH PT AND SIGNIFICANT OTHER. STEADY GAIT NOTED, NO DYSPNEA WITH ACTIVITY NOTED.
--- NOTE | 2019-05-03 19:57 | NUR ---
DRINKING COKE AND EATING CANDY PURCHASED FROM VENDING MACHINE. AMBULATED BACK TO ROOM WITH RN AND SIGNIFICANT OTHER. NO SOB WITH ACTIVITY NOTED. STEADY GAIT.
--- NOTE | 2019-05-03 20:01 | NUR ---
EFM AND TOCO PLACED FOR NST. PT REQUESTING TO VIEW MEDICAL RECORDS WITH RN. RN INSTRUCTED PT THAT SHE WOULD HAVE TO SIGN A RELEASE AND GET RECORDS FROM MEDICAL RECORDS IF SHE WISHED TO SEE THEM, VERBALIZES UNDERSTANDING. DENIES ADDITIONAL NEEDS. BED IN LOW POSITION WITH UPPER SIDE RAILS RAISED X2. CALL LIGHT AND PHONE WITHIN REACH. WILL CONT TO MONITOR.
--- NOTE | 2019-05-03 20:27 | NUR ---
REACTIVE NST NOTED. MONITORS OFF. WATCHING TV AT THIS TIME. SIGNIFICANT OTHER NOT IN ROOM. STATES THAT SHE WILL SHOWER WHEN HE RETURNS TO ROOM. INSTRUCTED TO NOTIFY RN SO LINENS COULD BE CHANGED. REQUESTS AMBIEN NOW, EDUCATED THAT SHE WOULD NOT BE ABLE TO SHOWER AFTER RECEIVING AMBIEN D/T INCREASING RISK FOR FALL, VERBALIZES UNDERSTANDING AND REQUESTS THAT SHE GET MED FOLLOWING SHOWER. DENIES NEEDS. BED IN LOW POSITION WITH UPPER SIDE RAILS RAISED X2. CALL LIGHT AND PHONE WITHIN REACH. WILL CONTINUE TO MONITOR.
--- NOTE | 2019-05-03 20:58 | NUR ---
UP TO SHOWER. LINENS CHANGED. PT REPORTS THAT SHE IS GOING TO WEAR HER OWN CLOTHES FOLLOWING SHOWER. SIGNIFICANT OTHER IN ROOM. DENIES NEEDS. NO SOB WITH ACTIVITY NOTED. STEADY GAIT. WILL CONTINUE TO MONITOR.
--- NOTE | 2019-05-03 21:18 | NUR ---
OUT OF SHOWER, REMAINS IN BATHROOM DRESSING AND REPORTS TO RN THAT SHE HAS TO USE THE BATHROOM BEFORE COMING OUT. DENIES NEEDS AND STATES THAT SHE WILL USE BATHROOM CALL LIGHT IF ASSISTANCE IS NEEDED.
--- NOTE | 2019-05-03 21:24 | NUR ---
SPOKE WITH DR. WALTON REGARDING GESTATION AND CURRENT ORDER FOR LOVENOX. ORDERS REC'D TO D/C LOVENOX. DR. WALTON ALSO NOTIFIED OF PT REFUSAL TO WEAR SCD'S AND PT INSISTING WITH STAFF THAT SCD'S WERE PAIN CONTROL DESPITE STAFF TRYING TO EDUCATE OTHERWISE.
--- NOTE | 2019-05-03 21:40 | NUR ---
REMAINS IN BATHROOM. REPORTS THAT SHE IS HAVING BM AT THIS TIME. WILL CONTINUE TO MONITOR.
--- NOTE | 2019-05-03 21:45 | NUR ---
SIGNIFICANT OTHER TO DESK, REPORTS THAT PT IS OUT OF BR AND IN BED. RN TO BEDSIDE. 20 MG PO PEPCID, NASAL SPRAY, AND 10 MG PO AMBIEN GIVEN PER ORDER. 18 G IV PLACED TO LEFT WRIST TIMES ONE STICK, EXCELLENT BLOOD RETURN NOTED, TOLERATED WELL, SECURED WITH TEGADERM AND TAPE. ICE PROVIDED. DENIES ADDITIONAL NEEDS AND PAIN. REFUSES TELEMETRY, STATING THAT THE ELECTRODES ARE "TEARING MY SKIN UP AND ITCHING, EVEN WITH Y'ALL CHANGING THEM." TELEMETRY RETURNED TO LIFE TRAINER. REFUSES SCD'S. BED IN LOW POSITION WITH UPPER SIDE RAILS RAISED X2. CALL LIGHT AND PHONE WITHIN REACH. WILL CONT TO MONITOR.
--- NOTE | 2019-05-03 23:10 | NUR ---
AMBULATORY ON UNIT WITH SIGNIFICANT OTHER. NON SKID SOCKS ON. STEADY GAIT NOTED. QUESTIONS REGARDING DIET RESTRICTION ANSWERED. PT INFORMED THAT SHE HAS NO DIETARY RESTRICTIONS AND CAN EAT AND DRINK ANYTHING THAT SHE WOULD LIKE. VEBALIZES UNDERSTANDING.
[2019-05-03 23:30] VITALS: BP 141/86
--- NOTE | 2019-05-03 23:30 | NUR ---
AMBULATORY BACK TO ROOM WITH PT. V/S TAKEN. O2 SAT 96% ON RA FOLLOWING ACTIVITY. B/P 141/86. PT REPORTS THAT SHE IS WORRIED ABOUT PAYING FOR RENT DURING THAT TIME THAT SHE WILL HAVE TO BE OFF OF WORK FOLLOWING HAVING INFANT. ASSURED HER THAT CM WOULD BE COMING TO SEE HER PRIOR TO GOING HOME AND COULD DISCUSS RESOURCES WITH HER, VERBALIZES UNDERSTANDING. SIGNIFICANT OTHER REMAINS AT BEDSIDE, SUPPORTIVE AND ATTENTIVE TO PT AND HER NEEDS. REFUSES SCD'S.
[2019-05-04 00:31] VITALS: BP 110/60
--- NOTE | 2019-05-04 00:31 | NUR ---
1.25 GM VANC HUNG TO INFUSE OVER 1 HOUR PER ORDER TO LT WRIST PIV, NO S/S OF INFILTRATION NOTED. B/P RECHECK DONE, 110/60. O2 SAT 96% PER RT. DENIES NEEDS AT THIS TIME. SIGNIFICANT OTHER RESTING ON COUCH AT BEDSIDE. BED IN LOW POSITION WITH UPPER SIDE RAILS RAISED X2. CALL LIGHT AND PHONE WITHIN REACH.
--- NOTE | 2019-05-04 01:48 | NUR ---
VANC INFUSION AND FLUSH COMPLETED. L WRIST PIV SL. NO S/S OF INFILTRATION NOTED. PT RESTING QUIETLY LAYING ON LEFT WITH EYES CLOSED, AROUSES EASILY TO VOICE AND LIGHT STIMULI. DENIES NEEDS. BED IN LOW POSITION WITH UPPER SIDE RAILS RAISED X2. CALL LIGHT AND PHONE WITHIN REACH. WILL CONTINUE TO MONITOR. SIGNIFICANT OTHER RESTING ON COUCH AT BEDSIDE.
--- NOTE | 2019-05-04 03:29 | NUR ---
RESTING QUIETLY WITH EYES CLOSED IN SEMI-FOWLERS POSITION. RESPIRATIONS REGULAR AND UNLABORED WITH NO S/S OF DISTRESS OF NOTED. SIGNIFICANT OTHER RESTING ON COUCH. BED IN LOW POSITION WITH UPPER SIDE RAILS RAISED X2. CALL LIGHT AND PHONE WITHIN REACH. WILL CONTINUE TO MONITOR.
--- NOTE | 2019-05-04 04:57 | NUR ---
RESTING QUIETLY LAYING ON LEFT SIDE RESTING WITH EYES CLOSED. RESPIRATIONS REGULAR AND UNLABORED, NO S/S OF DISTRESS NOTED. BED IN LOW POSITION WITH UPPER SIDE RAILS RAISED X2. CALL LIGHT AND PHONE WITHIN REACH. SIGNIFICANT OTHER RESTING ON COUCH. WILL CONTINUE TO MONITOR.
[2019-05-04 07:30] VITALS: BP 119/71
--- NOTE | 2019-05-04 07:30 | NUR ---
SITTING CROSS LEGGED IN BED EATING BREAKFAST. SKIN WARM DRY AND SLIGHTLY PALE. LIPS PINK. NO RESP DISTRESS OR OTHER DISTRESS NOTED OR REPORTED. BBS = AND CTA. REPORTS COUGHING PRODUCES THIN CLEAR PHLEGM WHICH DOES HAVE SOME BLOOD AND THAT MD IS AWARE OF SAME. REPORTS THAT SHE IS USING INCENTIVE SPIROMETER HOURLY. DENIES SMOKING CIGARETTES FOR 3 MONTHS. STATES SHE DOES NOT NEED NICOTENE PATCH. ALERT AND ORIENTED X 4. COMPLAINS OF NO PAIN NOW BUT STATES WHEN SHE LIES ON LEFT SIDE THAT SHE HAS PELVIC PAIN SHOOTING DOWN TO VAGINA AT A LEVEL 10 ON 0-10 SCALE WHICH IS RELIEVED WHEN SHE GETS OFF OF HER LEFT SIDE. NIGHT NURSE REPORTING PATIENT SLEPT ON LEFT SIDE MAJORITY OF NIGHT. MAE. FLORES NEGATIVE BLE. SALINE LOCK INTACT LEFT WRIST WITH NO SIGNS OF REDNESS, SWELLING, DRAINAGE OR FEVER. REPORTS SWELLING TO RIGHT FOREARM PREVIOUS IV SITE WHICH IS NOTED WITH NO REDNESS OR FEVER BUT IS SLIGHTLY SWOLLEN. VSS.
--- NOTE | 2019-05-04 08:30 | NUR ---
REMAINS STABLE IN BED WITH NO SIGNS OF RESP DISTRESS OR OTHER DISTRESS NOTED OR REPORTS. SKIN WARM DRY AND PINK. AWAKENED FOR MEDS. WAS SLEEPING ON RIGHT SIDE
--- NOTE | 2019-05-04 09:39 | MORECARE ---
CASE MANAGEMENT DISCHARGE SUMMARY PATIENT: STEPHANIE JOLLEY UNIT: [id number] ADM DATE: 04/28/19 AGE: 23 : [birth year] SEX: F ROOM/BED: D.1273 AUTHOR: SEN COX PHYSICIAN: REFERRING PHYSICIAN: CHANTELLE FLORENTINO MD DATE OF SERVICE: 05/04/19 Discharge Plan Patient Name: STEPHANIE JOLLEY Facility: [facility]:[place] : 1995 Planned Disposition: Anticipated Discharge Date: Discharge Date: Expected LOS: Initial Reviewer: [email or web address] Initial Review Date: 05/03/2019 Generated: 05/04/19 10:38 am Comments DCP- Discharge Planning Updated by DE: Natali Álvarez on 05/04/19 8:[address] Patient Name: STEPHANIE JOLLEY Admission Status: Elective Accout number: [id number] Admission Date: 04-28-2019 : 1995 Admission Diagnosis: Attending: CHANTELLE FLORENTINO Current LOS: 6 Anticipated DC Date: Planned Disposition: Primary Insurance: MEDICAID [place] PENDING Discharge Planning Comments: MEDS PROVIDED THRU CM AT [facility] IN AMOUNT OF 21. 87\ OMNICEFT 300 BID X10 Health Policy Analyst: Natali Álvarez Last DP export: 05/03/19 12:53 p Patient Name: STEPHANIE JOLLEY Page [phone] at 0939 All edits/amendments must be made on the electronic document DICTATION DATE: 05/04/19937 SENIOR SOFTWARE SYSTEMS ENGINEER: DINO 05/04/19937 RPT#: [id number] DC DATE: STATUS: ADM IN [facility] [address] [place] [address] END OF REPORT
--- NOTE | 2019-05-04 12:09 | NUR ---
PT OUT OF ROOM AT THIS TIME
--- NOTE | 2019-05-04 13:05 | NUR ---
dr graevs in unit- verbal order for discharge received.
[2019-05-04] MEDS ORDERED: OMNICEF300 MG PO (14:14)
--- NOTE | 2019-05-04 14:36 | NUR ---
RESP TO ROOM FOR TREATMENT
--- NOTE | 2019-05-04 14:45 | NUR ---
SALINE LOCK REMOVED, TIP INTACT, PRESSURE HELD, BANDAID APPLIED, DISCHARGE INST GONE OVER WITH PT, PT VERBALIZES UNDERSTANDING, QUESTIONS ANSWERED, FOB TO GET CAR
--- NOTE | 2019-05-04 15:00 | NUR ---
PT DISCHARGE VIA HOME WITH ALL BELONGINGS AND DISCHARGE PAPERWORK, FOB OUT AND OPENED CAR DOOR FOR PT, PT STATES "I'LL SEE YOU NEXT WEEK"
--- NOTE | 2019-05-04 15:06 | MORECARE ---
CASE MANAGEMENT DISCHARGE SUMMARY PATIENT: STEPHANIE JOLLEY UNIT: [id number] ADM DATE: 04/28/19 AGE: 23 : [birth year] SEX: F ROOM/BED: D.1273 AUTHOR: SEN COX PHYSICIAN: REFERRING PHYSICIAN: CHANTELLE FLORENTINO MD DATE OF SERVICE: 05/04/19 Discharge Plan Patient Name: STEPHANIE JOLLEY Facility: [facility]:[place] : 1995 Planned Disposition: Anticipated Discharge Date: Discharge Date: Expected LOS: Initial Reviewer: [id number] Initial Review Date: 05/03/2019 Generated: 05/04/19 4:06 pm Comments DCP- Discharge Planning Updated by DE: Natali Álvarez on 05/04/19 8:[address] Patient Name: STEPHANIE JOLLEY Admission Status: Elective Accout number: [id number] Admission Date: 04-28-2019 : 1995 Admission Diagnosis: Attending: CHANTELLE FLORENTINO Current LOS: 6 Anticipated DC Date: Planned Disposition: Primary Insurance: MEDICAID [place] PENDING Discharge Planning Comments: MEDS PROVIDED THRU CM AT [facility] IN AMOUNT OF 21. 87\ OMNICEFT 300 BID X10 Dining Car Steward: Natali Álvarez Last DP export: 05/04/19 8:39 a Patient Name: STEPHANIE JOLLEY Page [phone] at 1506 All edits/amendments must be made on the electronic document DICTATION DATE: 05/04/19 1505 SHOW JUMPING INSTRUCTOR: DINO 05/04/19 1505 RPT#: [id number] DC DATE: STATUS: ADM IN [facility] [address] [place] [address] END OF REPORT
== END 2019-05-04 15:00 | disposition home or self-care (01) | DRG 831 ==
LOC: D.LD 19:57 → D.LDO 19:57 → D.LD 23:25 → D.LDO 04-28 18:03 → D.LD 04-28 18:04
PROVIDERS: Internal Medicine Hematology & Oncology; Internal Medicine Pulmonary Disease; ADMIT Obstetrics & Gynecology; ATTEND Obstetrics & Gynecology
DX: O99.513 Diseases of the respiratory system complicating pregnancy, third trimester (principal); J18.1 Lobar pneumonia, unspecified organism; J96.01 Acute respiratory failure with hypoxia; R65.10 Systemic inflammatory response syndrome (SIRS) of non-infectious origin without acute organ dysfunction; R04.2 Hemoptysis; Z3A.37 37 weeks gestation of pregnancy; O99.343 Other mental disorders complicating pregnancy, third trimester; F31.9 Bipolar disorder, unspecified; O99.323 Drug use complicating pregnancy, third trimester; F12.90 Cannabis use, unspecified, uncomplicated; O26.93 Pregnancy related conditions, unspecified, third trimester; O99.013 Anemia complicating pregnancy, third trimester; K21.9 Gastro-esophageal reflux disease without esophagitis

== ENCOUNTER 2019-05-06 21:16 | Inpatient (IN) | payer MEDICAID ==
[~2019-05-06] VITALS: Ht 157.5 cm; Wt 74.8 kg
[~2019-05-06 21:16] MED LIST changes: +OMNICEF300 MG PO
[2019-05-06 22:14] LABS: BASOPHILS 0.2 % (0-2); EOSINOPHILS 0.6 % (0-7); HEMATOCRIT 29.4 % (36.0-48.0); HEMOGLOBIN 9.9 g/dL (12-16); IMMATURE GRANULOCYTES 3.1 % (0-5); LYMPHOCYTES 20.9 % (15-50); MCH 27.8 pg (26.0-34.0); MCHC 33.7 g/dL (31.0-37.0); MCV 82.6 fL (80.0-100.0); MEAN PLATELET VOLUME 10.4 fL (7.4-10.4); MONOCYTES 8.1 % (2-11); NEUTROPHILS 67.1 % (40-80); RBC 3.56 10x6/uL (4.00-5.40); WBC 8.9 10x3/uL (4.8-10.8)
[2019-05-06 22:23] LABS: CALC OSMOLALITY 274 mosm/kg (275-300); CALCIUM 8.1 mg/dL (8.5-10.1); CARBON DIOXIDE 23.3 mmol/L (21.0-32.0); CHLORIDE - SERUM 103 mmol/L (98-107); CREATININE - SERUM 0.6 mg/dL (0.6-1.3); GLUCOSE 103 mg/dL (74-106); PLATELET COUNT 322 10x3/uL (130-400); POTASSIUM - SERUM 3.6 mmol/L (3.5-5.1); SODIUM 138 mmol/L (136-145); UREA NITROGEN 10 mg/dL (7-18); eGFR NON AFRICAN AMERICAN > 90 mL/min (90-120)
[2019-05-06 22:24] LABS: APPEARANCE CLEAR (CLEAR); BILIRUBIN NEGATIVE (NEGATIVE); COLOR DK YELLOW (YELLOW); GLUCOSE NEGATIVE (NEGATIVE); KETONE NEGATIVE (NEGATIVE); NITRITE NEGATIVE (NEGATIVE); PROTEIN NEGATIVE (NEGATIVE); SPECIFIC GRAVITY 1.025 (1.005-1.020); UROBILINOGEN NORMAL (NORMAL)
[2019-05-06 22:26] LABS: APTT 27.1 SECONDS (22.8-39.4); INR 0.99 (0.85-1.17); PROTIME 12.6 SECONDS (11.6-15.0)
[2019-05-06 22:29] LABS: UDS - AMPHET NEGATIVE QUAL (NEGATIVE); UDS - BARB NEGATIVE QUAL (NEGATIVE); UDS - BENZO NEGATIVE QUAL (NEGATIVE); UDS - COCAINE NEGATIVE QUAL (NEGATIVE); UDS - OPIATE NEGATIVE QUAL (NEGATIVE); UDS - PCP NEGATIVE QUAL (NEGATIVE); UDS - THC NEGATIVE QUAL (NEGATIVE)
[2019-05-07 00:37] VITALS: BP 108/65; Ht 157.5 cm; Wt 74.8 kg
--- NOTE | 2019-05-07 01:30 | NUR ---
DR PUGA NOTIFIED AND REVIEWED PT'S BEHAVIOR AND ASSESSMENT RESULTS. PT IS A LOW RISK PER DR PUGA. DR PUGA STATED TO GIVE RESOURCES TO PT AT TIME OF DISCHARGE. NO FURTHER ORDERS AT THIS TIME. RESOURCES REVIEWED WITH PT AND SHE VERBALIZED UNDERSTANDING.
--- NOTE | 2019-05-07 04:45 | NUR ---
PT PROVIDED WITH TURKEY TRAY AT THIS TIME. Arie SIMON RN
--- NOTE | 2019-05-07 06:00 | NUR ---
PT UP TO BATHROOM TO VOID. VOIDED 300 ML AT THIS TIME. Arie SIMON, RN
[2019-05-07 07:08] LABS: BASOPHILS 0.2 % (0-2); EOSINOPHILS 0.4 % (0-7); HEMATOCRIT 27.7 % (36.0-48.0); HEMOGLOBIN 9.2 g/dL (12-16); IMMATURE GRANULOCYTES 1.6 % (0-5); LYMPHOCYTES 14.7 % (15-50); MCH 27.3 pg (26.0-34.0); MCHC 33.2 g/dL (31.0-37.0); MCV 82.2 fL (80.0-100.0); MEAN PLATELET VOLUME 10.1 fL (7.4-10.4); MONOCYTES 5.6 % (2-11); NEUTROPHILS 77.5 % (40-80); PLATELET COUNT 285 10x3/uL (130-400); RBC 3.37 10x6/uL (4.00-5.40); RDW 14.8 % (11.5-14.5)
[2019-05-07 07:20] LABS: WBC 12.4 10x3/uL (4.8-10.8)
--- NOTE | 2019-05-07 07:30 | NUR ---
PT RESTING WITH EYES CLOSED AND RESP EVEN LEFT UNDISTURBED.
[2019-05-07 08:49] VITALS: BP 110/60
--- NOTE | 2019-05-07 09:30 | NUR ---
ASSESSMENT COMPLETED. DENIES CLOTS WITH VOIDS AND STATES BLEEDING IS "VERY LIGHT" SALINE LOCK REMOVED INTACT FROM LEFT WRIST, PT REQUESTED THIS AND C/O OF ITCHING AT SITE. INFANT IN ROOM AND SHE DENIES NEEDS.
--- NOTE | 2019-05-07 11:30 | NUR ---
LARGE CUP OF ICE WITH DR GUTIERREZ REQUESTED. FRIENDS/FAMILY AT BEDSIDE WIHT IN ROOM.
--- NOTE | 2019-05-07 15:18 | NUR ---
TOWELS AND SHOWER ITEMS PLACED IN BATHROOM FOR PT TO BE ABLE TO SHOWER WHEN READY. WILL CALL SO THAT BED LINENS CAN BE CHANGED.
--- NOTE | 2019-05-07 15:50 | NUR ---
PAIN MED GIVEN SCANNED TO EMAR, FOR C/O OF PAIN THAT SHE RATES AT 6/10.
--- NOTE | 2019-05-07 16:30 | NUR ---
PAIN REASSEMENT, RATES AT 1/10 AND AMB ABOUT ROOM WITHOUT COMPLAINTS.
--- NOTE | 2019-05-07 20:20 | NUR ---
PAIN REASSESSMENT COMPLETED. REPORTS THAT PAIN IS MUCH RELIEVED, 10/23. DENIES NEED FOR ADDITIONAL INTERVENTIONS. SIGNIFICANT OTHER AT BEDSIDE, SUPPORTIVE AND ATTENTIVE TO PT AND . INFANT RESTING QUIETLY IN OPEN CRIB SWADDLED WITH HAT ON. BED IN LOW POSITION WITH UPPER SIDE RAILS RAISED X2. CALL LIGHT AND PHONE WITHIN REACH. WILL CONTINUE TO MONITOR.
[2019-05-07 21:22] VITALS: BP 141/84
--- NOTE | 2019-05-07 21:22 | NUR ---
SHIFT ASSESSMENT COMPLETED PER FLOWSHEET. VSS. FUNDUS FIRM MIDLINE AND U2 WITH SCANT RUBRA LOCHIA, NO CLOTS NOTED. PT REPORTS THAT SHE IS PASSING FLATUS AND VOIDING WITHOUT DIFFICULTY. STATES THAT SHE IS USING PERIBOTTLE AFTER USING BATHROOM. REPORTS THAT SHE HAS ALREADY SHOWERED, LINENS CHANGED AT THIS TIME. EDUCATION PROVIDED PER FLOWSHEET. BACK TO NBN PER PT REQUEST FOR HER AMBULATE ON UNIT. WILL CONTINUE TO MONITOR.
--- NOTE | 2019-05-07 21:43 | NUR ---
AMBULATORY ON UNIT WITH SIGNIFICANT OTHER, STEADY GAIT NOTED. DENIES NEEDS. WILL CONTINUE TO MONITOR.
--- NOTE | 2019-05-07 22:02 | NUR ---
PT TO NBN TO GET TO BRING TO ROOM. DENIES NEEDS AND PAIN AT THIS TIME. WILL CONTINUE TO MONITOR.
--- NOTE | 2019-05-07 23:10 | NUR ---
INFANT REMAINS IN ROOM WITH MOM. RESTING QUEITLY IN OPEN CRIB, SWADDLED IN ONE BLANKET, HAT ON. RESP REGULAR AND UNLABORED, NO S/S OF DISTRESS NOTED. COLOR WNL. SKIN WARM AND DRY. WILL CONTINUE TO MONITOR.
--- NOTE | 2019-05-07 23:10 | NUR ---
PREPARING TO GO TO BED. BLANKET AND PILLOW PROVIDED TO SIGNIFICANT OTHER PER REQUEST. DENIES ADDITIONAL NEEDS. RESTING QUIETLY IN OPEN CRIB AT BEDSIDE. BED IN LOW POSITION WITH UPPER SIDE RAILS RAISED X2. CALL LIGHT AND PHONE WITHIN REACH. WILL CONTINUE TO MONITOR AND ASSIST PRN.
--- NOTE | 2019-05-08 01:12 | NUR ---
STATES THAT SHE IS GOING TO GO WALKING ON UNIT. REQUESTS INFANT BE TAKEN TO NBN. DENIES ADDITIONAL NEEDS AT THIS TIME. BED IN LOW POSITION WITH UPPER SIDE RAILS RAISED X2. CALL LIGHT AND PHONE WITHIN REACH. WILL CONTINUE TO MONITOR.
--- NOTE | 2019-05-08 01:20 | NUR ---
AMBULATORY ON UNIT WITH SIGNIFICANT OTHER. STEADY GAIT NOTED. DENIES NEEDS. WILL CONTINUE TO MONITOR.
--- NOTE | 2019-05-08 01:47 | NUR ---
C/O ABD CRAMPING 03/23. NORCO AND MOTRIN GIVEN PER ORDER AND PT REQUEST. ICE WATER PROVIDED. DENIES ADDITIONAL NEEDS. SIGNIFICANT OTHER RESTING ON COUCH AT BEDSIDE. BED IN LOW POSITION WITH UPPER SIDE RAILS RAISED X2. CALL LIGHT AND PHONE WITHIN REACH. WILL CONTINUE TO MONITOR AND ASSIST PRN.
--- NOTE | 2019-05-08 02:30 | NUR ---
PAIN REASSESSMENT COMPLETED. LAYING ON RIGHT SIDE RESTING WITH EYES CLOSED. RESP REGULAR AND UNLABORED, NO S/S OF DISTRESS NOTED. SIGNIFICANT OTHER RESTING ON COUCH AT BEDSIDE. BED IN LOW POSITION WITH UPPER SIDE RAILS RAISED X2. CALL LIGHT AND PHONE WITHIN REACH. WILL CONTINUE TO MONITOR AND ASSIST PRN.
--- NOTE | 2019-05-08 04:10 | NUR ---
LAYING ON LEFT SIDE RESTING WITH EYES CLOSED. RESPIRATIONS REGULAR AND UNLABORED, NO S/S OF DISTRESS NOTED. SIGNIFICANT OTHER RESTING ON COUCH AT BEDSIDE. IN NBN. BED IN LOW POSITION WITH UPPER SIDE RAILS RAISED X2. CALL LIGHT AND PHONE WITHIN REACH. WILL CONTINUE TO MONITOR AND ASSIST PRN.
[2019-05-08 06:09] LABS: RAPID PLASMA REAGIN Non Reactive (Non Reactive)
--- NOTE | 2019-05-08 07:43 | NUR ---
PT OFF UNIT AMBULATORY WITH SIG OTHER. WILL DO SHIFT ASSESSMENT WHEN PT RETURNS TO ROOM.
[2019-05-08 08:12] VITALS: BP 145/84
[2019-05-08 08:16] VITALS: BP 130/76
--- NOTE | 2019-05-08 08:16 | NUR ---
PT RETURNS TO ROOM FROM AMBULATING. THIS RN TO ROOM. SHIFT ASSESSMENT COMPLETED, VSS, SEE FLOWSHEET FOR DOC. PT RATES PAIN APPROX 4/10 AT THIS TIME, C/O CRAMPING AND REQUESTS PAIN MED. FF, ML, U/2. SMALL RUBRA LOCHIA WITHOUT CLOTS NOTED TO PERIPAD. LOCHIA FLOW AND S/S TO REPORT DISCUSSED WITH PT, UNDERSTANDING VERBALIZED. PT DENIES HEAVY LOCHIA CONCERNS, STATES "IT'S ACTUALLY BEEN REALLY LIGHT." POC DISCUSSED WITH PT, UNDERSTANDING VERBALIZED. WILL ADMIN PRN PAIN MED ORDERED, SEE EMAR FOR DOC.
--- NOTE | 2019-05-08 10:04 | NUR ---
THIS RN TO ROOM FOR PAIN REASSESS. PT STATES PAIN ISN'T REALLY BETTER, RATES CRAMPING 03/23. PT REQUESTS ADDITIONAL PAIN MED. PRN PAIN EGG TRAYER ORDERED, SEE EMAR FOR DOC. PT DENIES FURTHER NEEDS, RESUMES FEEDING . SRUx2, CL IN REACH. WILL CONT TO MONITOR.
--- NOTE | 2019-05-08 11:05 | NUR ---
THIS RN TO ROOM FOR PAIN REASSESSMENT. PT AMBULATING IN BR, STATES PAIN LEVEL IS "LOW", RATES 1-2/10. PT REQUESTS PADS AND PANTIES, PROVIDED TO PT REQUESTED. PT DENIES FURTHER NEEDS AT THIS TIME. WILL CONT TO MONITOR.
--- NOTE | 2019-05-08 12:15 | NUR ---
PT CALLS OUT EMERGENCY MANAGER LIGHT FOR ASSIST WITH BABY. THIS RN TO ROOM. NOTED TO HAVE SPIT UP ON SHIRT AND BLANKET, AND IS CRYING. NEW SHIRT AND BLANKETS PROVIDED, PT CHANGES INFANT'S SHIRT AND THIS RN SWADDLES . PT SOOTHES AND HOLDS, INFANT CALMS. PT REASSURED, DENIES FURTHER NEEDS. SRUx2, CL IN REACH.
--- NOTE | 2019-05-08 13:10 | NUR ---
PT CALLS OUT BOAT CAMP OPERATOR LIGHT FOR BOTTLE OF FORMULA FOR . PROVIDED TO PT REQUESTED. PT SITTING UP IN BED EATING LUNCH, INFANT RESTING IN BASINETTE. PT DENIES FURTHER NEEDS. SRUx2, CL IN REACH.
--- NOTE | 2019-05-08 15:00 | NUR ---
DR FLORENTINO ROUNDING ON PT, INFORMING OF DISCHARGE TO HOME. WRITTEN PRESCRIPTIONS PROVIDED ON PT CHART FOR DISCHARGE.
--- NOTE | 2019-05-08 16:07 | NUR ---
PT GIVEN DISCHARGE INSTRUCTIONS WELL WRITTEN PRESCRIPTIONS FOR PAIN CONTROL POST DISCHARGE TO HOME. PT ALSO INSTRUCTED TO CALL [facility] SATURDAY TO SCHEDULE 4 WEEK PP FOLLOW UP APPOINTMENT. UNDERSTANDING VERBALIZED AND PT DENIES QUESTIONS. PT SIGNS CHART COPIES ON INSTRUCTIONS. PT INSTRUCTED TO BUCKLE INFANT IN CARSEAT AND CALL WHEN READY FOR W/C OUT.
--- NOTE | 2019-05-08 16:50 | NUR ---
PT OFF UNIT VIA W/C WITH SIG OTHER AND INFANT IN CARSEAT. INSTRUCTIONS AND PRESCRIPTIONS IN HAND.
== END 2019-05-08 16:45 | disposition home or self-care (01) | DRG 805 ==
LOC: D.LDO 21:16 → D.LD 22:20
PROVIDERS: ADMIT Obstetrics & Gynecology; ATTEND Obstetrics & Gynecology
PROC: 10E0XZZ Delivery of Products of Conception, External Approach (ICD-10-PCS; principal; 2019-05-07)
DX: O99.52 Diseases of the respiratory system complicating childbirth (principal); J18.9 Pneumonia, unspecified organism; Z37.0 Single live birth; O76 Abnormality in fetal heart rate and rhythm complicating labor and delivery; Z3A.39 39 weeks gestation of pregnancy

== ENCOUNTER 2019-05-10 10:17 | Emergency (ER) | payer MEDICAID ==
[2019-05-10 10:28] VITALS: Ht 157.5 cm
[2019-05-10] MEDS ORDERED: IBUPROFEN800 MG PO (10:30)
[2019-05-10] MEDS ORDERED: HYDROCODON-ACE1 EAC7 PO (10:30)
[2019-05-10] MEDS ORDERED: HYDROCODONE-A1 UDTA2 PO (13:11)
[2019-05-10] MEDS ORDERED: KEFLEX500 MG PO (13:11)
[2019-05-10 13:25] VITALS: BP 110/60
== END 2019-05-10 13:26 | disposition home or self-care (01) ==
LOC: D.ER 10:17
DX: N64.4 Mastodynia (principal)

== ENCOUNTER 2019-05-15 22:45 | Emergency (ER) | payer MEDICAID ==
[~2019-05-15] VITALS: Ht 157.5 cm; Wt 70.5 kg
[~2019-05-15 22:45] MED LIST changes: +HYDROCODON-ACE1 EAC7 PO; +HYDROCODONE-A1 UDTA2 PO; +IBUPROFEN800 MG PO; +KEFLEX500 MG PO
[2019-05-15 23:03] VITALS: BP 135/79; Ht 157.5 cm; Wt 70.5 kg
[2019-05-15 23:55] LABS: BASOPHILS 0.4 % (0-2); HEMATOCRIT 33.8 % (36.0-48.0); HEMOGLOBIN 11.4 g/dL (12-16); IMMATURE GRANULOCYTES 0.5 % (0-5); LYMPHOCYTES 28.3 % (15-50); MCH 28.3 pg (26.0-34.0); MCHC 33.7 g/dL (31.0-37.0); MCV 83.9 fL (80.0-100.0); MEAN PLATELET VOLUME 9.9 fL (7.4-10.4); MONOCYTES 7.9 % (2-11); NEUTROPHILS 61.9 % (40-80); RBC 4.03 10x6/uL (4.00-5.40); RDW 15.4 % (11.5-14.5); WBC 8.1 10x3/uL (4.8-10.8)
[2019-05-15 23:59] LABS: PLATELET COUNT 403 10x3/uL (130-400)
[2019-05-16 00:20] LABS: PROTIME 12.7 SECONDS (11.6-15.0)
[2019-05-16 00:21] LABS: APTT 33.5 SECONDS (22.8-39.4)
[2019-05-16 00:36] LABS: APPEARANCE CLEAR (CLEAR); COLOR YELLOW (YELLOW); SPECIFIC GRAVITY 1.015 (1.005-1.020)
[2019-05-16 00:37] LABS: BILIRUBIN NEGATIVE (NEGATIVE); GLUCOSE NEGATIVE (NEGATIVE); KETONE NEGATIVE (NEGATIVE); NITRITE NEGATIVE (NEGATIVE); PROTEIN NEGATIVE (NEGATIVE); UROBILINOGEN NORMAL (NORMAL)
[2019-05-16 00:44] LABS: HCG URINE NEGATIVE (NEGATIVE)
[2019-05-16 00:57] LABS: ALBUMIN 2.9 g/dL (3.4-5.0); ALKALINE PHOSPHATASE 118 U/L (46-116); BILIRUBIN - TOTAL 0.32 mg/dL (0.2-1.3); CALC OSMOLALITY 281 mosm/kg (275-300); CALCIUM 8.2 mg/dL (8.5-10.1); CARBON DIOXIDE 24.9 mmol/L (21.0-32.0); CHLORIDE - SERUM 103 mmol/L (98-107); CREATININE - SERUM 0.6 mg/dL (0.6-1.3); GLUCOSE 113 mg/dL (74-106); POTASSIUM - SERUM 3.2 mmol/L (3.5-5.1); PROTEIN - SERUM 6.7 g/dL (6.4-8.2); SODIUM 140 mmol/L (136-145); UREA NITROGEN 18 mg/dL (7-18); eGFR NON AFRICAN AMERICAN > 90 mL/min (90-120)
[2019-05-16 00:59] LABS: ALT (SGPT) 4 U/L (10-68)
== END 2019-05-16 02:13 | disposition home or self-care (01) ==
LOC: D.ER 22:45
PROVIDERS: Family Medicine
DX: M25.552 Pain in left hip (principal); V03.90XA Pedestrian on foot injured in collision with car, pick-up truck or van, unspecified whether traffic or nontraffic accident, initial encounter; Y93.01 Activity, walking, marching and hiking; Y92.481 Parking lot as the place of occurrence of the external cause

== ENCOUNTER 2019-08-24 18:26 | Emergency (ER) | payer MEDICAID ==
[~2019-08-24] VITALS: Ht 157.5 cm; Wt 61.1 kg
[2019-08-24 18:42] VITALS: Ht 157.5 cm; Wt 61.1 kg
--- NOTE | 2019-08-24 19:50 | NUR ---
DR PUGA NOTIFIED OF PT'S BEHAVIOR AND ASSESSMENT RESULTS. PT IS A LOW RISK PER DR PUGA. DR PUGA SAID TO GIVE RESOURCES AT TIME OF DISCHARGE. RESOURCES GIVEN AND REVIEWED WITH PT AND SHE VERBALIZES UNDERSTANDING.
[2019-08-24 20:40] VITALS: BP 150/102
== END 2019-08-24 20:42 | disposition home or self-care (01) ==
LOC: D.ER 18:26
DX: S51.811A Laceration without foreign body of right forearm, initial encounter (principal); X78.1XXA Intentional self-harm by knife, initial encounter; F17.210 Nicotine dependence, cigarettes, uncomplicated

== ENCOUNTER 2019-09-02 18:15 | Emergency (ER) | payer MEDICAID ==
[~2019-09-02] VITALS: Ht 157.5 cm; Wt 61.8 kg
[2019-09-02 18:21] VITALS: Ht 157.5 cm; Wt 61.8 kg
[2019-09-02 19:00] LABS: BASOPHILS 0.3 % (0-2); EOSINOPHILS 0.8 % (0-7); HEMATOCRIT 41.3 % (36.0-48.0); HEMOGLOBIN 13.7 g/dL (12-16); IMMATURE GRANULOCYTES 0.3 % (0-5); LYMPHOCYTES 30.8 % (15-50); MCH 31.2 pg (26.0-34.0); MCHC 33.2 g/dL (31.0-37.0); MCV 94.1 fL (80.0-100.0); MEAN PLATELET VOLUME 10.4 fL (7.4-10.4); MONOCYTES 9.2 % (2-11); NEUTROPHILS 58.6 % (40-80); RBC 4.39 10x6/uL (4.00-5.40); RDW 13.4 % (11.5-14.5); WBC 7.8 10x3/uL (4.8-10.8)
[2019-09-02 19:11] LABS: PLATELET COUNT 278 10x3/uL (130-400)
[2019-09-02 19:16] LABS: CALC OSMOLALITY 277 mosm/kg (275-300); CALCIUM 8.7 mg/dL (8.5-10.1); CARBON DIOXIDE 26.6 mmol/L (21.0-32.0); CHLORIDE - SERUM 105 mmol/L (98-107); CREATININE - SERUM 0.7 mg/dL (0.6-1.3); GLUCOSE 96 mg/dL (74-106); POTASSIUM - SERUM 3.4 mmol/L (3.5-5.1); SODIUM 139 mmol/L (136-145); UREA NITROGEN 13 mg/dL (7-18); eGFR NON AFRICAN AMERICAN > 90 mL/min (90-120)
[2019-09-02 19:22] LABS: APPEARANCE CLEAR (CLEAR); BILIRUBIN NEGATIVE (NEGATIVE); COLOR YELLOW (YELLOW); GLUCOSE NEGATIVE (NEGATIVE); KETONE NEGATIVE (NEGATIVE); NITRITE POSITIVE (NEGATIVE); PROTEIN NEGATIVE (NEGATIVE); UROBILINOGEN NORMAL (NORMAL)
[2019-09-02 19:23] LABS: BACTERIA MANY /hpf (NEGATIVE); EPITHELIAL CELLS OCC /hpf (0-5); RED CELLS - URINE 0-5 /hpf (0-5); WHITE CELLS - URINE OCC /hpf (NEGATIVE)
[2019-09-02 19:28] LABS: ALBUMIN 3.8 g/dL (3.4-5.0); ALKALINE PHOSPHATASE 66 U/L (46-116); ALT (SGPT) 23 U/L (10-68); BILIRUBIN - TOTAL 0.39 mg/dL (0.2-1.3); HCG - QUANTITATIVE (MATERNAL) 1 mIU/mL; PROTEIN - SERUM 7.3 g/dL (6.4-8.2)
[2019-09-02] MEDS ORDERED: VISTARIL25 MG PO (22:13)
[2019-09-02] MEDS ORDERED: VOLTAREN75 MG PO (22:13)
[2019-09-02] MEDS ORDERED: MACROBID100 MG PO (22:13)
[2019-09-02 22:30] VITALS: BP 127/74
== END 2019-09-02 22:30 | disposition home or self-care (01) ==
LOC: D.ER 18:15
PROVIDERS: Family Medicine
DX: O03.9 Complete or unspecified spontaneous abortion without complication (principal); Z3A.10 10 weeks gestation of pregnancy

== ENCOUNTER 2019-12-16 14:45 | Emergency (ER) | payer MEDICAID ==
[~2019-12-16] VITALS: Ht 157.5 cm; Wt 59.1 kg
[~2019-12-16 14:45] MED LIST changes: +MACROBID100 MG PO; +SMZ-TMP DS TABL1 TAB PO; +VISTARIL25 MG PO; +VOLTAREN75 MG PO
[2019-12-16 14:58] VITALS: Ht 157.5 cm; Wt 59.1 kg
[2019-12-16] MEDS ORDERED: KLONOPIN0.5 MG PO (16:22)
[2019-12-16 16:46] VITALS: BP 108/69
== END 2019-12-16 16:50 | disposition home or self-care (01) ==
LOC: D.ER 14:45
DX: F41.8 Other specified anxiety disorders (principal)

== ENCOUNTER 2020-02-23 10:04 | Emergency (ER) | payer MEDICAID ==
[~2020-02-23] VITALS: Ht 157.5 cm; Wt 59.1 kg
[~2020-02-23 10:04] MED LIST changes: +KLONOPIN0.5 MG PO
[2020-02-23 10:17] VITALS: Ht 157.5 cm; Wt 59.1 kg
[2020-02-23 10:48] LABS: HEMATOCRIT 40.7 % (36.0-48.0); HEMOGLOBIN 13.7 g/dL (12-16); LYMPHOCYTES 23.3 % (15-50); MCH 31.7 pg (26.0-34.0); MCHC 33.7 g/dL (31.0-37.0); MCV 94.2 fL (80.0-100.0); MEAN PLATELET VOLUME 10.1 fL (7.4-10.4); NEUTROPHILS 67.2 % (40-80); PLATELET COUNT 283 10x3/uL (130-400); RBC 4.32 10x6/uL (4.00-5.40); RDW 13.2 % (11.5-14.5); WBC 7.2 10x3/uL (4.8-10.8)
[2020-02-23 10:53] LABS: CALC OSMOLALITY 284 mosm/kg (275-300); CALCIUM 8.2 mg/dL (8.5-10.1); CARBON DIOXIDE 24.2 mmol/L (21.0-32.0); CHLORIDE - SERUM 107 mmol/L (98-107); CREATININE - SERUM 0.8 mg/dL (0.6-1.3); GLUCOSE 80 mg/dL (74-106); HCG SERUM NEGATIVE (NEGATIVE); POTASSIUM - SERUM 3.7 mmol/L (3.5-5.1); SODIUM 143 mmol/L (136-145); UREA NITROGEN 14 mg/dL (7-18); eGFR NON AFRICAN AMERICAN > 90 mL/min (90-120)
[2020-02-23 11:04] LABS: ALBUMIN 3.7 g/dL (3.4-5.0); ALKALINE PHOSPHATASE 71 U/L (30-120); ALT (SGPT) 19 U/L (10-68); AMYLASE - SERUM 36 U/L (25-115); BILIRUBIN - TOTAL 0.42 mg/dL (0.2-1.3); LIPASE 108 U/L (73-393); PROTEIN - SERUM 6.4 g/dL (6.4-8.2)
[2020-02-23 11:27] LABS: BILIRUBIN NEGATIVE (NEGATIVE); GLUCOSE NEGATIVE (NEGATIVE); KETONE NEGATIVE (NEGATIVE); NITRITE NEGATIVE (NEGATIVE)
[2020-02-23 11:29] LABS: BACTERIA FEW /hpf (NEGATIVE); EPITHELIAL CELLS 0-5 /hpf (0-5); RED CELLS - URINE >50 /hpf (0-5); WHITE CELLS - URINE 0-5 /hpf (NEGATIVE)
[2020-02-23 13:50] VITALS: BP 128/74
== END 2020-02-23 13:57 | disposition home or self-care (01) ==
LOC: D.ER 10:04
PROVIDERS: Family Medicine
DX: R31.9 Hematuria, unspecified (principal); R30.0 Dysuria; M54.5 Low back pain; R10.9 Unspecified abdominal pain; R30.9 Painful micturition, unspecified

== ENCOUNTER 2020-04-27 18:59 | Emergency (ER) | payer OTHER ==
[2020-02-23 10:17] VITALS: Ht 157.5 cm; Wt 61.8 kg
[~2020-04-27] VITALS: Ht 157.5 cm; Wt 61.8 kg
[2020-04-27 19:43] LABS: HEMOGLOBIN 12.8 g/dL (12-16); LYMPHOCYTES 23.7 % (15-50); MCHC 34.6 g/dL (31.0-37.0); MCV 92.5 fL (80.0-100.0); MEAN PLATELET VOLUME 9.9 fL (7.4-10.4); NEUTROPHILS 68.3 % (40-80); PLATELET COUNT 292 10x3/uL (130-400); WBC 11.2 10x3/uL (4.8-10.8)
[2020-04-27 19:46] LABS: CALC OSMOLALITY 271 mosm/kg (275-300); CALCIUM 8.6 mg/dL (8.5-10.1); CARBON DIOXIDE 26.4 mmol/L (21.0-32.0); CHLORIDE - SERUM 103 mmol/L (98-107); CREATININE - SERUM 0.6 mg/dL (0.6-1.3); GLUCOSE 86 mg/dL (74-106); POTASSIUM - SERUM 3.4 mmol/L (3.5-5.1); SODIUM 137 mmol/L (136-145); UREA NITROGEN 9 mg/dL (7-18); eGFR NON AFRICAN AMERICAN > 90 mL/min (90-120)
[2020-04-27 19:48] LABS: APTT 29.6 SECONDS (22.8-39.4); INR 0.96 (0.85-1.17); PROTIME 12.8 SECONDS (11.6-15.0)
[2020-04-27 20:13] LABS: ALBUMIN 3.3 g/dL (3.4-5.0); ALKALINE PHOSPHATASE 60 U/L (30-120); ALT (SGPT) 14 U/L (10-68); BILIRUBIN - TOTAL 0.18 mg/dL (0.2-1.3); HCG - QUANTITATIVE (MATERNAL) 124207 mIU/mL; PROTEIN - SERUM 6.2 g/dL (6.4-8.2)
[2020-04-27 20:24] LABS: BILIRUBIN NEGATIVE (NEGATIVE); GLUCOSE NEGATIVE (NEGATIVE); KETONE NEGATIVE (NEGATIVE); NITRITE NEGATIVE (NEGATIVE); SPECIFIC GRAVITY 1.015 (1.005-1.020); UROBILINOGEN NORMAL (NORMAL)
[2020-04-27 21:59] VITALS: BP 105/82
--- NOTE | 2020-04-27 22:27 | NUR ---
DR PUGA NOTIFIED AND REVIEWED PT'S BEHAVIOR AND ASSESDSMENT RESULTS. PT IS A LOW RISK PER DR PUGA. DR PUGA STATED TO GIVE RESOURCES TO PT AT TIME OF DISCHARGE. NO FURTHER ORDERS AT THIS TIME. RESOURCES REVIEWED WITH PT AND HE VERBALIZED UNDERSTANDING.
== END 2020-04-27 21:59 | disposition home or self-care (01) ==
LOC: D.ER 18:59
PROVIDERS: Emergency Medicine
DX: O20.0 Threatened abortion (principal); R10.30 Lower abdominal pain, unspecified; Z3A.01 Less than 8 weeks gestation of pregnancy

== ENCOUNTER 2020-06-23 10:43 | Emergency (ER) | payer OTHER ==
[~2020-06-23] VITALS: Ht 157.5 cm; Wt 60.0 kg
[2020-06-23 11:02] VITALS: BP 116/71; Ht 157.5 cm; Wt 60.0 kg
[2020-06-23] MEDS ORDERED: KLONOPIN1 MG PO (11:04)
[2020-06-23 12:39] LABS: BASOPHILS 0.2 % (0-2); EOSINOPHILS 1.4 % (0-7); HEMATOCRIT 38.2 % (36.0-48.0); HEMOGLOBIN 12.5 g/dL (12-16); IMMATURE GRANULOCYTES 0.2 % (0-5); LYMPHOCYTES 17.3 % (15-50); MCH 30.8 pg (26.0-34.0); MCHC 32.7 g/dL (31.0-37.0); MCV 94.1 fL (80.0-100.0); MEAN PLATELET VOLUME 10.5 fL (7.4-10.4); MONOCYTES 8.3 % (2-11); NEUTROPHILS 72.6 % (40-80); PLATELET COUNT 255 10x3/uL (130-400); RBC 4.06 10x6/uL (4.00-5.40); RDW 13.2 % (11.5-14.5); WBC 8.4 10x3/uL (4.8-10.8)
[2020-06-23 12:45] LABS: CALC OSMOLALITY 273 mosm/kg (275-300); CALCIUM 8.2 mg/dL (8.5-10.1); CARBON DIOXIDE 28.8 mmol/L (21.0-32.0); CHLORIDE - SERUM 105 mmol/L (98-107); CREATININE - SERUM 0.8 mg/dL (0.6-1.3); GLUCOSE 85 mg/dL (74-106); POTASSIUM - SERUM 3.4 mmol/L (3.5-5.1); SODIUM 138 mmol/L (136-145); UREA NITROGEN 9 mg/dL (7-18); eGFR NON AFRICAN AMERICAN > 90 mL/min (90-120)
[2020-06-23 12:48] LABS: BILIRUBIN NEGATIVE (NEGATIVE); KETONE NEGATIVE (NEGATIVE); NITRITE POSITIVE (NEGATIVE); UROBILINOGEN NORMAL (NORMAL)
[2020-06-23 12:49] LABS: BACTERIA FEW /HPF (NONE SEEN); EPITHELIAL CELLS 0-5 /hpf (0-5); WHITE CELLS - URINE 0-5 /hpf (0-5)
[2020-06-23 12:50] LABS: HCG URINE NEGATIVE (NEGATIVE)
[2020-06-23 12:52] LABS: ALBUMIN 3.3 g/dL (3.4-5.0); ALKALINE PHOSPHATASE 71 U/L (30-120); ALT (SGPT) 13 U/L (10-68); BILIRUBIN - TOTAL 0.52 mg/dL (0.2-1.3); PROTEIN - SERUM 6.7 g/dL (6.4-8.2)
[2020-06-23 12:56] LABS: INR 1.09 (0.85-1.17)
== END 2020-06-23 15:17 | disposition left against medical advice (07) ==
LOC: D.ER 10:43
PROVIDERS: Family Medicine
DX: R10.2 Pelvic and perineal pain (principal)

== ENCOUNTER 2021-01-18 05:30 | Emergency (ER) | payer BC ==
[~2021-01-18] VITALS: Ht 157.5 cm; Wt 54.1 kg
[~2021-01-18 05:30] MED LIST changes: +KLONOPIN1 MG PO
[2021-01-18 05:32] VITALS: BP 122/80; Ht 157.5 cm; Wt 54.1 kg
[2021-01-18 06:03] LABS: UDS - AMPHET NEGATIVE QUAL (NEGATIVE); UDS - BARB NEGATIVE QUAL (NEGATIVE); UDS - BENZO NEGATIVE QUAL (NEGATIVE); UDS - COCAINE NEGATIVE QUAL (NEGATIVE); UDS - OPIATE NEGATIVE QUAL (NEGATIVE); UDS - PCP NEGATIVE QUAL (NEGATIVE); UDS - THC POSITIVE QUAL (NEGATIVE)
[2021-01-18 06:35] LABS: BASOPHILS 0.1 % (0-2); EOSINOPHILS 0.5 % (0-7); HEMATOCRIT 35.4 % (36.0-48.0); HEMOGLOBIN 12.1 g/dL (12-16); IMMATURE GRANULOCYTES 0.4 % (0-5); LYMPHOCYTE ABS# 1.97 10x3/uL (1.18-3.74); LYMPHOCYTES 15.2 % (15-50); MCH 31.5 pg (26.0-34.0); MCHC 34.2 g/dL (31.0-37.0); MCV 92.2 fL (80.0-100.0); MEAN PLATELET VOLUME 10.7 fL (7.4-10.4); MONOCYTES 6.6 % (2-11); NEUTROPHIL ABS# 10.01 10x3/uL (1.56-6.13); NEUTROPHILS 77.2 % (40-80); PLATELET COUNT 305 10x3/uL (130-400); RBC 3.84 10x6/uL (4.00-5.40); RDW 13.3 % (11.5-14.5)
[2021-01-18 07:06] LABS: ALBUMIN 3.4 g/dL (3.4-5.0); ALKALINE PHOSPHATASE 54 U/L (30-120); ALT (SGPT) 18 U/L (10-68); BILIRUBIN - TOTAL 0.27 mg/dL (0.2-1.3); CALC OSMOLALITY 272 mosm/kg (275-300); CALCIUM 8.7 mg/dL (8.5-10.1); CARBON DIOXIDE 23.7 mmol/L (21.0-32.0); CHLORIDE - SERUM 104 mmol/L (98-107); CREATINE KINASE 156 UL (21-215); CREATININE - SERUM 0.6 mg/dL (0.6-1.3); GLUCOSE 77 mg/dL (74-106); HCG - QUANTITATIVE (MATERNAL) 84488 mIU/mL; PROTEIN - SERUM 6.4 g/dL (6.4-8.2); SODIUM 138 mmol/L (136-145); UREA NITROGEN 8 mg/dL (7-18); eGFR NON AFRICAN AMERICAN > 90 mL/min (90-120)
[2021-01-18 07:22] LABS: POTASSIUM - SERUM 2.6 mmol/L (3.5-5.1)
[2021-01-18 07:23] LABS: BILIRUBIN NEGATIVE (NEGATIVE); KETONE NEGATIVE (NEGATIVE); NITRITE NEGATIVE (NEGATIVE); UROBILINOGEN NORMAL mg/dL (< 2)
[2021-01-18 07:24] LABS: AMORPHOUS SEDIMENT <1+ LPF (NONE SEEN); BACTERIA FEW HPF (NONE SEEN); GRANULAR CAST 0-5 LPF (NONE SEEN); SQUAMOUS EPITHELIAL 0-5 HPF (0-4); WHITE CELLS - URINE OCC HPF (0-4)
== END 2021-01-18 07:44 | disposition home or self-care (01) ==
LOC: D.ER 05:30
PROVIDERS: Family Medicine
DX: O26.891 Other specified pregnancy related conditions, first trimester (principal); Z3A.11 11 weeks gestation of pregnancy; R10.30 Lower abdominal pain, unspecified

== ENCOUNTER 2021-01-23 18:32 | Emergency (ER) | payer BC ==
[~2021-01-23] VITALS: Ht 157.5 cm; Wt 54.1 kg
[2021-01-23 18:55] VITALS: BP 132/72; Ht 157.5 cm; Wt 54.1 kg
[2021-01-23] MEDS ORDERED: ZOLOFT100 MG PO (19:02)
[2021-01-23 19:36] LABS: BILIRUBIN NEGATIVE (NEGATIVE); KETONE NEGATIVE (NEGATIVE); NITRITE NEGATIVE (NEGATIVE); UROBILINOGEN NORMAL mg/dL (< 2)
== END 2021-01-23 19:38 | disposition left against medical advice (07) ==
LOC: D.ER 18:32
PROVIDERS: Emergency Medicine
DX: R10.9 Unspecified abdominal pain (principal); Z53.29 Procedure and treatment not carried out because of patient's decision for other reasons